=== PATIENT | male | born 1955 | race Caucasian/White ===

== ENCOUNTER 2021-07-20 19:23 | Emergency (ER) | payer MEDICARE, SELFPAY ==
[2021-07-20 19:43] VITALS: BP 113/67; PULSE 72; RESP 16; TEMP 36.9; O2SAT 97; BMI 25.0
--- NOTE | 2021-07-20 19:59 | W.ED.ANIMALB ---
HPI - Animal Bite General: Chief Complaint: Animal Bite Stated Complaint: left arm lac Time Seen by Provider: 07/20/21 19:59 History of Present Illness: HPI narrative: 66-year-old male patient got bit by his dog this afternoon. Patient states that he was trying to break up his 2 animals. And the 1 bit him to the left midforearm leaving a small laceration. Patient denies any other pain. Patient was concerned for his tetanus vaccine. Review of Systems General: Reports: 10 or more systems reviewed and unremarkable except in HPI and below Skin/Breast: Reports: other (laceration left forearm) [facility] PFSH: Social History Smoking and tobacco status: former smoker Physical Exam Const: COMMON NORMALS: no acute distress and patient oriented x3 GENERAL APPEARANCE: cooperative HENMT: COMMON NORMALS: normocephalic and Normal external nose present HEAD & SCALP: normal to inspection and normocephalic NOSE: Normal external nose present Eye: GENERAL EYE: appearance normal, both eyes and all related structures Neck/C-Spine: COMMON NORMALS: full ROM Chest: COMMONS NORMALS: normal inspection of the chest Resp: COMMON NORMALS: normal respiratory effort EFFORT & INSPECTION: Yes able to speak in complete sentences Cardio: COMMON NORMALS: regular rate and regular rhythm RATE: regular rate RHYTHM: regular rhythm GI: COMMON NORMALS: non-tender Back/Pelvis: COMMON NORMALS: thoracic and lumbar spine normal to inspection Extremity: COMMON NORMALS: normal to inspection Neuro: COMMON NORMALS: patient oriented x3 and moves all extremities Psych: COMMON NORMALS: mental status grossly normal and cooperative Skin: NARRATIVE SKIN EXAM: Patient has a 2 cm V-shaped skin tear to the left forearm. There is a puncture wound at the V tip. Patient has normal range of motion of the extremity and normal cap refill. Course Vital Signs: Vital signs: Vital Signs Temperature 98.5 F 07/20/21 19:43 Pulse Rate 72 07/20/21 19:43 Respiratory Rate 16 07/20/21 19:43 Blood Pressure 113/67 07/20/21 19:43 Pulse Oximetry 97 07/20/21 19:43 MDM - Animal Bite MDM Narrative: Medical decision making narrative: Patient comes in for evaluation of injury to the left forearm. On exam patient has a V-shaped laceration/skin tear to the mid dorsal forearm on the left side. Patient has normal range of motion, sensation, and cap refill. Differential diagnosis includes fracture, laceration, tendon injury, need for prophylaxis antibiotic/vaccine. Patient's tetanus shot was updated. Patient be put on some Augmentin due to the nature of the bite. Reviewed exam and recommended no suture for wound closure as this is a superficial laceration and will heal appropriately yet there is a higher risk of infection. Patient was started on Augmentin twice a day for the next 7 days. Patient reported understanding of care plan and need for follow-up or return to the ER. Discharge Plan Discharge Patient Disposition: Home Clinical Impression: Dog bite of forearm Qualifiers: Encounter type: initial encounter Laterality: left Qualified Code(s): S51.852A - Open bite of left forearm, initial encounter Condition: Stable Prescriptions: New Augmentin 875-125 mg tablet 1 tab PO BID Qty: 14 RF: 0 No Action cetirizine-pseudoephedrine [Zyrtec-D] 5-120 mg tablet extended release 12 hr 1 tab PO BID RF: 0 Discharge Orders: Discharge ED (Routine); Ordered 07/20/21 Ordered By: Salty Forrest Referrals: Aura Soto MD [Primary Care Provider] - Discharge Diet: Usual diet Discharge Activity: Increase activity as tolerated Patient Instructions: Opioid Safety, Wound Care (General) Activity Restrictions/Additional Instructions: Keep wound clean and dry. Wash wound daily with some mild soap and water and cover with a nonstick dressing. Take antibiotics twice a day for the next 7 days. Follow-up with primary care in 1 week for recheck earlier for high fever greater than 100.4, increased redness and swelling to the arm. Return to the ER for new concerns. Coding Level of Care Code ED [employer]st for [employer] Exam Comprehensive
[2021-07-20 20:16] VITALS: BP 113/67; PULSE 78; RESP 17; O2SAT 98
[2021-07-20] MEDS: tetanus-dipt-pertussis 0.5 mL SDV IM (20:34)
[2021-07-20] MEDS: amoxicillin-clav 875-125 mg Tablet 1 TAB PO (20:34)
== END 2021-07-20 20:54 | disposition home or self-care (01) ==
PROVIDERS: Emergency Provider Nurse Practitioner Family; PCP Family Medicine
DX: S51.852A Open bite of left forearm, initial encounter (principal); W54.0XXA Bitten by dog, initial encounter; Z87.891 Personal history of nicotine dependence
CPT/HCPCS: 90471; 90715; 99282

== ENCOUNTER 2024-09-11 09:39 | Outpatient (CLI) | payer OTHER, SELFPAY ==
--- NOTE | 2024-09-11 09:49 | MR_ITS ---
WS: [id number] MRI HEAD WITH CONTRAST WITH ATTENTION TO THE INTERNAL AUDITORY CANALS TECHNIQUE: Sagittal T1, T2 axial, T2 axial flair, axial susceptibility weighted imaging, axial diffus ion weighted images, and coronal T2 images were obtained. Pre and post T1 axial and post T1 coronal i mages. ADC and FSPGR images. Post gadolinium images with attention to the internal auditory canals. A xial fiesta imaging. CLINICAL INFORMATION: OTHER SPECIFIED HEARLING LOSS,BILATERAL COMPARISON: None. FINDINGS: No evidence of restricted diffusion to suggest acute ischemia. Ventricular system and basal cisterns are patent. Minimal small vessel changes. Mild parenchymal volume loss. No hemosiderin on the suscept ibility weighted images. RIGHT IAC is normal. Normal trigeminal nerve root entry zones. Enhancing lesion in the LEFT IAC measu ring 4.3 x 3.0 mm compatible with vestibular schwannoma. Normal optic chiasm and pituitary infundibul um. Normal cavernous sinuses. Normal dural venous sinuses. No hemosiderin on the susceptibly weighted images. Mild mucosal thickening in the paranasal sinuses. Mastoid air cells are well aerated. Normal posterior fossa. Normal vascular flow voids at the skull base. No extra-axial fluid collection s. MR/MR iac's wo/w con* [id number] IMPRESSION: 1. Enhancing LEFT IAC nodule compatible with vestibular schwannoma measuring 4 .3 x 3.0 mm. 2. No evidence of restricted diffusion to suggest acute ischemia. 3. Minimal small vessel changes. Mild parenchymal volume loss. 4. No other acute findings.
[2024-09-11] MEDS: gadobenate dimeglumine 5 mL vial IV (11:02)
== END 2024-09-11 09:40 | disposition home or self-care (01) ==
LOC: RAD 09:42
PROVIDERS: Visit Provider Otolaryngology
DX: H91.8X3 Other specified hearing loss, bilateral (principal); R93.89 Abnormal findings on diagnostic imaging of other specified body structures
CPT/HCPCS: 70553

== ENCOUNTER 2025-04-10 09:02 | Emergency (ER) | payer MEDICARE, SELFPAY ==
--- OUTSIDE RECORDS SUMMARY | 2024-08-16 08:45 | XMS_ITS | Encounter Summary ---
Author Name [facility] Organization [facility] [place] Address [address] [place] [id number] Support Name Relationship Address Phone XUAN INMAN Next of Kin [address] [place] [address] [place] [phone] XUAN INMAN Emergency Contact [address] [place] [address] [place] [address] Insurance Providers: All historical and current Section Date Range: From patient's date of to the date document was created. This section includes the names of all active insurance providers for the patient. Insurance Provider Type of Coverage Plan Name Start of Policy Coverage End of Policy Coverage Group Number Member ID Insurance Provider's Telephone Number Policy Barajas's Name Patient's Relationship to Policy Barajas [employer] MCR (WNR) MEDICARE ADVANTAGE MCR (WNR) Sep 12, 2022 [id number] JONATHAN INMAN PATIENT Selected Encounter This section includes the information on record at [place] for the Encounter. Date/Time Encounter Type Encounter Description Reason Provider Source Aug 16, 2024 01:45 PM TELEHEALTH FACILITY FEE PRIMARY CARE/MEDICINE ICD-10-CM I10 Essential (primary) hypertension FERNANDA CASTILLO Sunni Encounter Template Text not used by [place] Assessments - Encounter Diagnoses This section includes the primary and secondary diagnoses documented for the Encounter. Date/Time Primary/Secondary Diagnosis Diagnosis Name Provider Source Aug 17, 2024 02:44 PM PRIMARY Essential (primary) hypertension CLEMENTE VALENZUELA [facility] Plan of Treatment: Future Appointments (+ 6 months) and Future Tests (+/- 45 days) The Plan of Treatment section includes future care activities for the patient from all [facility] treatmentfacilities. This section includes future appointments and future orders which are active, pending or scheduled. Future Appointments This section includes appointments that were scheduled to occur 6 months from the date of the Encounter, up to a maximum of 20 appointments. The data comes from all [place] treatment facilities. Appointment Date/Time Appointment Type Appointme nt Facility Name Sep 11, 2024 08:00 AM [facility] [place] [facility] Oct 22, 2024 09:30 AM AMBULATORY - MEDICINE [facility] Oct 22, 2024 09:31 AM [facility] [place] [facility] Nov 26, 2024 12:00 PM AMBULATORY - MEDICINE [facility] Nov 26, 2024 12:01 [facility] February 06, 2025 12:30 PM AMBULATORY MEDICINE [facility] February 06, 2025 12:31 PM AMBULATORY MEDICINE [facility] Lab Results: +/- 30 days of the encounter This section includes the Chemistry and Hematology Lab Results on record with [place] for the patient. Radiology Reports and Pathology Reports are provided separately, in subsequent sections. Lab Results This section contains the Chemistry/Hematology Results that were resulted 30 days before or 30 daysafter the date of the Encounter. Date/Time Source Result Type Result - Unit Interpretation Reference Range Specimen Type Comment Jul 30, 2024 08:15 AM [facility] COMPREHENSIVE METABOLIC PANEL PLASMA Specimen Type: PLASMA No comment entered. Ordering Provider: KYLAH SHIN Report Released Date/Time: Jul 30, 2024 08:14 AM Reporting Lab: [facility] [address] [facility] [facility] [address] Performing Lab: [facility] [address] [facility] [facility] [address] CREATININE 1.01 mg/dL 0.7-1.3 UREA NITROGEN 14 mg/dL 9-25 GLUCOSE 103 mg/dL H 72-99 SODIUM 139 meq/L 136-145 POTASSIUM 3.8 meq/L 3.5-5 CHLORIDE 107 meq/L 98-107 CARBON DIOXIDE 25 meq/L 22-31 CALCIUM 9.0 mg/dL 8.4-10.4 PROTEIN 6.5 g/dL 6-8.6 ALBUMIN 4.1 g/dL 3.4-5 TOTAL BILIRUBIN 0.7 mg/dL 0.2-1.2 ALKALINE PHOSPHATASE 57 U/L 40-150 AST/SGOT 15 U/L 5-34 ALT/SGPT 15 U/L 8-40 EGFR (CKD-EPI 2020) 82 Jul 30, 2024 08:15 AM [facility] PROST. SPECIFIC AG.(PB-STL) SERUM Specimen Ty pe: SERUM No comment entered. Ordering Provider: KYLAH SHIN Report Released Date/Time: Jul 30, 2024 08:14 AM Reporting Lab: [place] [facility] [address] [place] [address] Performing Lab: [place] [facility] [address] [place] [facility] PROST. SPECIFIC AG.(PB-STL) 3.72 ng/mL 0 -4 Jul 30, 2024 08:15 AM [facility] TSH (MA-PB) SERUM Specimen Typ e: SERUM No comment entered. Ordering Provider: KYLAH SHIN Report Released Date/Time: Jul 30, 2024 08:14 AM Reporting Lab: [place] [facility] [address] [place] [facility] Performing Lab: [place] [facility] [address] [place] [id number] TSH 1.906 u[IU]/mL 0.47-5 Jul 30, 2024 08:15 AM [facility] CBC BLOOD Specimen Type: BLOOD No comment entered. Ordering Provider: KYLAH SHIN Report Released Date/Time: Jul 30, 2024 08:14 AM Reporting Lab: [place] [facility] [address] [place] [facility] Performing Lab: [place] [facility] [address] [place] [facility] WBC 4.4 10*3/uL 3.6-11.2 RBC 5.07 10*6/uL 4.10-5.70 HGB 14.9 g/dL 13.1-16.8 HCT 43.9 38.2-48.4 MCV 86.6 fL 80.0-100.0 MCH 29.4 pg 27.0-34.0 MCHC 33.9 g/dL 33.0-36.0 PLT 199 10*3/uL 150-400 MPV 9.1 fL 7.5-11.2 RDW 13.1 11.8-15.1 LYMPHOCYTES, AUTO % 31.9 MONOCYTES, AUTO % 10.9 NEUTROPHILS, AUTO % 49.3 EOSINOPHILS, AUTO % 5.9 BASOPHILS, AUTO % 1.8 LYMPHOCYTES, ABSOLUTE 1.41 10*3/uL 0.77- 4.50 MONOCYTES, ABSOLUTE 0.48 10*3/uL 0.19-0. 8 NEUTROPHILS, ABSOLUTE 2.18 10*3/uL 2.10- 8.00 EOSINOPHILS, ABSOLUTE 0.26 10*3/uL 0.00- 0.60 BASOPHILS, ABSOLUTE 0.08 10*3/uL 0.00-0. 20 IMMATURE GRANS, AUTO % 0.2 IMMATURE GRANS, AUTO ABS 0.01 10*3/uL 0. 00-0.05 Jul 30, 2024 08:15 AM [facility] HGA1C BLOOD Specimen Type: BLOOD No comment entered. Ordering Provider: KYLAH SHIN Report Released Date/Time: Jul 30, 2024 08:14 AM Reporting Lab: [place] [facility] [address] [place] [address] Performing Lab: [place] [facility] [address] [place] [address] HGA1C 5.5 4.0-6.0 Jul 30, 2024 08:15 AM [facility] CHOLESTEROL PANEL (PB) PLASMA Specimen Type: P LASMA No comment entered. Ordering Provider: KYLAH SHIN Report Released Date/Time: Jul 30, 2024 08:14 AM Reporting Lab: [place] [facility] [address] [place] [address] Performing Lab: [place] [facility] [address] [place] [address] CHOLESTEROL 162 mg/dL 0-200 TRIGLYCERIDE 92 mg/dL 0-150 CALCULATED LDL 96.6 mg/dL HDL(New) 47.0 mg/dL H >40 HDL % OF TOTAL CHOLESTEROL (PB) 29.0 >25 Vital Signs: All taken on the encounter date This section contains inpatient and outpatient Vital Signs collected on the date of the Encounter. Date/Time Temperature Pulse Blood Pressure Respiratory Rate SP02 Pain Height Weight Body Mass Index Source Aug 16, 2024 02:23 PM 68 133/84 98 [facility] Aug 16, 2024 02:21 PM 74 145/92 18 97 2 72.0 189.3 26 [facility] Social History: Smoking Status (Most current) and Tobacco Use (All prior to encounter date) This section includes the most current, and the historical, smoking and tobacco- related health factors from the [place] facility where the Encounter took place. Current Smoking Status This section includes the most current smoking, or tobacco-related health factor, from the [place] facility where the Encounter took place. Date/Time Current Smoking Status Comment Facil ity Aug 16, 2024 01:45 PM VA-TOBACCO USE FORMER CIGARETTES [facility] Tobacco Use History This section includes a history of the smoking, or tobacco-related health factors, that were collected on or before the date of the Encounter. The data comes from the [place] facility where the Encounter took place. Date/Time Smoking Status/Tobacco Use Comment F acility Aug 16, 2024 01:45 PM VA-TOBACCO USE FORMER CIGARETTES [facility] Encounter Notes: All associated encounter notes This section contains the clinical notes associated to the Encounter. Date/Time Encounter Note(s) Provider Source Sep 19, 2024 04:16 PM ADDENDUM: LOCAL TITLE: Addendum STANDARD TITLE: ADDENDUM DATE OF NOTE: SEP 19, 2024@16:16:57 ENTRY DATE: SEP 19, 2024@16:16:58 AUTHOR: CLEMENTE VALENZUELA EXP COSIGNER: URGENCY: STATUS: COMPLETED Toxic Exposure Screening - CP,DI,L,NS,P,PH,S,U: The /caregiver was asked if they believe the experienced any toxic exposure(s), such as Airborne Hazards and Open Burn Pit, [place] War related exposures, Agent Greenup, Radiation, contaminated water at [place] or other such exposures, while serving in the Armed [employer]. 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 Printed information was offered and provided if desired. No questions at this time /caregiver was informed of local points of contact. Contact information for local resources: [facility] Registry Exam Program: [phone] Eligibility: [phone] [id number] Toxic Exposure Screening Follow-Up reminder is needed. Name of person notified: DESIRAE Coker /suki/ CLEMENTE VALENZUELA LPN Signed: 09/19/2024 16:19 Receipt Acknowledged By: 09/20/2024 08:04 /suki/ DESIRAE JOSEPH- FERNANDA MCCRACKEN [facility] --- Original Document --- 08/16/24 PRIMARY CARE NURSING PROGRESS NOTE (TEXT) NURSING PB: New Patient INMAN,JONATHAN OCASIO IS A 69 YEAR OLD MALE BEING SEEN IN CLINIC AUG 16, 2024. REASON FOR VISIT: [place] to [place]. 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 Are you receiving care any where other than the [place]? Yes, List: Dr. Jimy Conde - [place], [place], Cardiology Rupali Alston, [place] and Dr. Russo, ENT. 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 No CURRENT ACTIVE MEDICATIONS FOR REVIEW: Allergies/ADRs (Tool #5) FACILITY ALLERGY/ADR -------- No Remote Allergy/ADR Data available for this patient [facility] No Known Allergies Med. Reconciliation (Tool #1) INCLUDED IN THIS LIST: Alphabetical list of active outpatient prescriptions dispensed from this [place] (local) and dispensed from another [place] or [facility] facility (remote) as well as inpatient orders (local pending and active), local clinic medications, locally documented non-VA medications, and local prescriptions that have or been discontinued in the past 90 days. Non-VA Meds Last Documented On: Data not found NOTE The display of VA prescriptions dispensed from another [place] or [facility] facility (remote) is limited to active outpatient prescription entries matched to National Drug File at the originating site and may not include some items such as investigational drugs, compounds, etc. NOT INCLUDED IN THIS LIST: Medications self-entered by the patient into personal health records (i.e. [employer]) are NOT included in this list. Non-VA medications documented outside this [place], remote inpatient orders (regardless of status) and remote clinic medications are NOT included in this list. The patient and provider must always discuss medications the patient is taking, regardless of where the medication was dispensed or obtained. SUPPLIES PHARMACY TERMS AND POSSIBLE PATIENT ACTIONS INPT = [place] inpatient order IV = [place] intravenous medication OUTPT = [place] outpatient prescription PHARMACY POSSIBLE PATIENT TERMS EXPLANATION ACTIONS -------- --- ACTIVE A prescription that can be If you have refills, filled at the local [place] pharmacy. you may request a refill of this prescription from your VA pharmacy. CLINIC A medication you received during If you have questions a visit to a VA clinic or about this medication emergency department. contact your VA healthcare team. DISCONTINUED A prescription your provider has Contact your VA stopped. It is no longer healthcare team if you available to be sent to you or need more of this picked up at the [place] pharmacy medication. window. A prescription which is too old Contact your VA to fill. This does not refer to healthcare team if you the expiration date of the need more of this medication in the container. medication. NON-VA A medication that came from If this medication someplace other than a VA information is pharmacy. This may be a incorrect or out of prescription from either the VA date, please tell your or non VA providers that was VA healthcare team. filled outside the VA. Or, it may be an lhkm-mfi-nquvvio (OTC), herbal, dietary supplements or sample medication. ON HOLD An active prescription that will Contact your VA not be filled until pharmacy pharmacy when you need resolves the issue. more of this medication. PARKED An active prescription that will Contact your VA not be filled until the patient pharmacy when you need requests it. this medication. PENDING This prescription order has been If you have been sent to the pharmacy for review instructed to start and is not ready yet. this medication now, contact your VA pharmacy. SUSPENDED An active prescription that is Contact your VA not scheduled to be filled yet. pharmacy if you need You should receive it before this medication now. you run out. ======== Patient reports taking medications as Ezetimibe 10mg daily, Azelastine HCL 0.1% 137mcg one spray in each nare, Nitroglycerin PRN IS PATIENT TAKING ANY OVER THE COUNTER MEDICATIONS, SUCH VITAMINS OR HERBAL SUPPLEMENTS, INCLUDING ANY MEDICATIONS PRESCRIBED BY ANOTHER PHYSICIAN? Yes, List: Allergy Meds ALLERGIES/ADVERSE REACTIONS: Patient has answered NKA Does patient have any new allergies to report since last visit? NO VITALS: TEMPERATURE: BP: RESP: PULSE: HT: WT: BMI: BMI not available without height PAIN ASSESSMENT: (Most Recent Pain Score in Vitals Package: ) The patient indicated that they and their close contacts have not traveled outside of the [place] in the past 21 days. The patient reports the following symptoms: No symptoms present The patient is not immunocompromised. The patient does not report having a history of Multi Drug Resistant Organism (MDRO) within the last five years. The patient does not report having been exposed to measles, chickenpox, or zoster in last 30 days. Patient reports no pain at this visit. Pain Score = 0. STRESS: Thank you for your service. Now let us serve you. At the [facility], we strive to provide you with exceptional health care that improves your health and well-being. Are you feeling sad, empty, or depressed? No Do you need to talk about things in your life that worry you or cause you stress? No Do you need to talk about personal problems, family problems, alcohol use, drug use, or mental or emotional illness? No SUICIDE SCREENING: The patient was asked, Over the past two weeks, how often have you been bothered by thoughts that you would be better off or of hurting yourself in some way? Not At All SPIRITUAL ASSESSMENT: Are there latter-day practices or spiritual concerns you want the corporation secretary, your physician, and other health care team members to immediately know about? No Patient advised to call the clinic for any concerns, questions, or symptoms. Patient and/or caregiver verbalized understanding of plan of care. Cigarette Pack Year History: The patient previously used cigarettes and quit smoking greater than or equal to 15 years ago. MST Screening - V: Patient denies experiencing sexual trauma (MST). Suicide Screen - V: C-SSRS Screening [place]-Suicide Severity Rating Scale (C-SSRS Screener) 1. Over the past month, have you wished you were or wished you could go to sleep and not wake up? No 2. Over the past month, have you had any actual thoughts of killing yourself? No 3. Over the past month, have you been thinking about how you might do this? Response not required due to responses to other questions. 4. Over the past month, have you had these thoughts and had some intention of acting on them? Response not required due to responses to other questions. 5. Over the past month, have you started to work out or worked out the details of how to kill yourself? Response not required due to responses to other questions. 6. If yes, at any time in the past month did you intend to carry out this plan? Response not required due to responses to other questions. 7. In your lifetime, have you ever done anything, started to do anything, or prepared to do anything to end your life (for example, collected pills, obtained a gun, gave away valuables, went to the roof but didn't jump)? No 8. If YES, was this within the past 3 months? Response not required due to responses to other questions. 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 /caregiver believes the was exposed to the following while serving in the Armed Forces: Airborne Hazards and Open Burn Pit: Steward/caregiver was made aware of educational resources that includes information on the Registry Program, presumptive conditions and how to file a claim. Printed information was offered and provided if desired. Radiation: Steward/caregiver was made aware of educational resources that includes information on the Registry Program, presumptive conditions and how to file a claim. Printed information was offered and provided if desired. Other exposures: Comment: Nuclear waste treament and Uranium, Radio activity lots. Steward/caregiver was made aware of educational resources and printed information was offered and provided if desired. Registry Questions Steward/caregiver was informed of local point of contact. Contact information for local resources: [facility] Registry Exam Program: [phone] Eligibility: [phone] [id number] Toxic Exposure Screening Follow-Up reminder is needed. Name of person notified: DESIRAE Stauffer RHS Screen - VS: RHS Screen Session Format: Face to Face Environmental Check Upon inquiry, the individual reports that the environment is safe to proceed. Informed Consent to Screen and Document The individual consents to proceed with screening. The individual consents to documentation of responses. PRIMARY SCREEN: In the past 12 months, how often did a current or former intimate partner (e.g., boyfriend, girlfriend, , , sexual partner): 1. Scream or curse at you Never 2. Insult or talk down to you Never 3. Threaten you with harm Never 4. Physically hurt you Never 5. Force or pressure you to have sexual contact against your will, or when you were unable to say no Never The HITS tool (items 1-4 above) is US copyright protected by Mode Velasquez MD, and the user has full rights to use it throughout the [place] system. PRIMARY SCREEN RESULT: The Primary Screen is NEGATIVE. The individual answered never to all forms of IPV above (i.e., answered never to all 5 items) The individual accepts education and/or resources: No EDUCATION: Other: na Comments: na COVID-19 Immunization - L,N,P,PH,U: Refused Moderna Monovalent COVID-19 vaccine Immunization: COVID-19 (MODERNA), MRNA, LNP-S, PF, 50 MCG/0.5 ML (AGES 12+ YEARS) Refusal Reason: PATIENT DECISION Patient refuses all immunization(s) in the COVID-19 group Date Documented: 08/16/24 14:11 Alcohol Use Screen (AUDIT-C) - V: Alcohol Screen: SCREEN FOR ALCOHOL (AUDIT-C) An alcohol screening test (AUDIT-C) was negative (score=0). 1. How often did you have a drink containing alcohol in the past year? Consider a drink to be a 12 ounce can or bottle of regular beer, 8 ounces of malt liquor, a 5 ounce glass of table wine, or a 1.5 ounce shot of liquor (like scotch, gin, or vodka). Never 2. How many drinks containing alcohol did you have on a typical day when you were drinking in the past year? Response not required due to responses to other questions. 3. How often did you have six or more drinks on one occasion in the past year? Response not required due to responses to other questions. Tobacco Use Screening - U,L,N,S,PS,M,DE,PH,P: The patient is a former cigarette smoker. The patient has never used other types of tobacco. Depression Screening - V: Perform PHQ-2 A PHQ-2 screen was performed. The score was 0 which is a negative screen for depression. Over the past two weeks, how often have you been bothered by the following problems? 1. Little interest or pleasure in doing things Not at all 2. Feeling down, depressed, or hopeless Not at all Homelessness/Food Insecurity Screen - DI,L,N,P,PH,PS,S,U: In the past 2 months, have you been living in stable housing that you own, rent, or stay in as part of a household? Yes - Living in stable housing. Are you worried or concerned that in the next 2 months you may NOT have stable housing that you own, rent, or stay in as part of a household? No - Not worried about housing near future The reports the following: Within the past 12 months, you worried whether your food would run out before you got money to buy more. Never true Within the past 12 months, the food you bought just didn't last and you didn't have money to get more. Never true Advanced Directive Screen/Fisheries Management Biologist: ADVANCE DIRECTIVE SCREENING: I asked if the patient has an advance directive, and determined that: Patient has an Advance Directive. Patient does not wish to make any changes to the Advance Directive at this time. ADVANCE DIRECTIVE NOTIFICATION I provided the patient with written notification about advance directives. Level of understanding: Influenza Immunization - L,N,P,PH,U: Deferral / Refusal The patient declines to receive the recommended dose of seasonal influenza vaccine. Immunization: INFLUENZA, UNSPECIFIED FORMULATION Refusal Reason: PATIENT DECISION Patient refuses all immunization(s) in the FLU group Date Documented: 08/16/24 14:14 PTSD Screening - V: PC-PTSD-5 A PTSD screening test (PC-PTSD-5) was negative (score=0). IN THE PAST MONTH, have you ever had any experience that was so frightening, horrible or traumatic. For example: A serious accident or fire a physical or sexual assault or abuse An earthquake or flood A war Seeing someone be killed or seriously injured Having a loved one through homicide or suicide 1. Have you ever experienced this kind of event? YES 2. Had nightmares about the event(s) or thought about the event(s) when you did not want to? NO 3. Tried hard not to think about the event(s) or went out of your way to avoid situations that reminded you of the event(s)? NO 4. Been constantly on guard, watchful, or easily startled? NO 5. Smiley numb or detached from people, activities, or your surroundings? NO 6. Smiley guilty or unable to stop blaming yourself or others for the event(s) or any problems the event(s) may have caused? NO VVC DIGITAL DIVIDE CAPABILITY REMINDER: Patient is not interested in VVC at this time. 'S RIGHT TO DECLINE STATEMENT Steward understands they have the right to decline the use of Telehealth Technology at any time without adverse affects on their continued access to healthcare. HIV Screening-Routine: Patient has been offered HIV testing and has declined. I have explained that HIV testing is recommended for all adults, even if all risk factors are absent. 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 While here the Steward advised during his appointment he forgot to mention that he was at [facility] for [employer] training for several months, he believes in 1977. /es/ SEVERO COOK 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 While here the Steward advised during his appointment he forgot to mention that he was at [facility] [employer] [facility] for [employer] training for several months, he believes in 1977. /es/ SEVERO COOK [facility] Signed: 09/19/2024 13:38 Receipt Acknowledged By: 09/20/2024 08:09 /es/ FERNANDA CASTILLO SCIENTIST ENGINEER- [facility] 09/19/2024 16:16 /es/ CLEMENTE VALENZUELA LPN --- Original Document --- 08/16/24 PRIMARY CARE NURSING PROGRESS NOTE (TEXT) NURSING PB: New Patient INMAN,JONATHAN OCASIO IS A 69 YEAR OLD MALE BEING SEEN IN CLINIC AUG 16, 2024. REASON FOR VISIT: [place] 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 Are you receiving care any where other than the [facility]? Yes, List: Dr. Jimy Conde - [place], [place], Cardiology Rupali Alston, [place] and Dr. Russo, ENT. 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 No CURRENT ACTIVE MEDICATIONS FOR REVIEW: Allergies/ADRs (Tool #5) FACILITY ALLERGY/ADR -------- No Remote Allergy/ADR Data available for this patient [facility] No Known Allergies Med. Reconciliation (Tool #1) INCLUDED IN THIS LIST: Alphabetical list of active outpatient prescriptions dispensed from this [place] (local) and dispensed from another [place] or [facility] facility (remote) as well as inpatient orders (local pending and active), local clinic medications, locally documented non-VA medications, and local prescriptions that have or been discontinued in the past 90 days. Non-VA Meds Last Documented On: Data not found NOTE The display of VA prescriptions dispensed from another [place] or [facility] facility (remote) is limited to active outpatient prescription entries matched to National Drug File at the originating site and may not include some items such as investigational drugs, compounds, etc. NOT INCLUDED IN THIS LIST: Medications self-entered by the patient into personal health records (i.e. Biocontrol) are NOT included in this list. Non-VA medications documented outside this [place], remote inpatient orders (regardless of status) and remote clinic medications are NOT included in this list. The patient and provider must always discuss medications the patient is taking, regardless of where the medication was dispensed or obtained. SUPPLIES PHARMACY TERMS AND POSSIBLE PATIENT ACTIONS INPT = [place] inpatient order IV = [place] intravenous medication OUTPT = [place] outpatient prescription PHARMACY POSSIBLE PATIENT TERMS EXPLANATION ACTIONS -------- --- ACTIVE A prescription that can be If you have refills, filled at the local [place] pharmacy. you may request a refill of this prescription from your [place] pharmacy. CLINIC A medication you received during If you have questions a visit to a [place] clinic or about this medication emergency department. contact your [place] healthcare team. DISCONTINUED A prescription your provider has Contact your [place] stopped. It is no longer healthcare team if you available to be sent to you or need more of this picked up at the [place] pharmacy medication. window. A prescription which is too old Contact your VA to fill. This does not refer to healthcare team if you the expiration date of the need more of this medication in the container. medication. NON-VA A medication that came from If this medication someplace other than a VA information is pharmacy. This may be a incorrect or out of prescription from either the VA date, please tell your or non VA providers that was VA healthcare team. filled outside the VA. Or, it may be an tvuh-nwy-krqhtzh (OTC), herbal, dietary supplements or sample medication. ON HOLD An active prescription that will Contact your VA not be filled until pharmacy pharmacy when you need resolves the issue. more of this medication. PARKED An active prescription that will Contact your [place] not be filled until the patient pharmacy when you need requests it. this medication. PENDING This prescription order has been If you have been sent to the pharmacy for review instructed to start and is not ready yet. this medication now, contact your VA pharmacy. SUSPENDED An active prescription that is Contact your [place] not scheduled to be filled yet. pharmacy if you need You should receive it before this medication now. you run out. ======== Patient reports taking medications as Ezetimibe 10mg daily, Azelastine HCL 0.1% 137mcg one spray in each nare, Nitroglycerin PRN IS PATIENT TAKING ANY OVER THE COUNTER MEDICATIONS, SUCH VITAMINS OR HERBAL SUPPLEMENTS, INCLUDING ANY MEDICATIONS PRESCRIBED BY ANOTHER PHYSICIAN? Yes, List: Allergy Meds ALLERGIES/ADVERSE REACTIONS: Patient has answered NKA Does patient have any new allergies to report since last visit? NO VITALS: TEMPERATURE: BP: RESP: PULSE: HT: WT: BMI: BMI not available without height PAIN ASSESSMENT: (Most Recent Pain Score in Vitals Package: ) The patient indicated that they and their close contacts have not traveled outside of the [place] in the past 21 days. The patient reports the following symptoms: No symptoms present The patient is not immunocompromised. The patient does not report having a history of Multi Drug Resistant Organism (MDRO) within the last five years. The patient does not report having been exposed to measles, chickenpox, or zoster in last 30 days. Patient reports no pain at this visit. Pain Score = 0. STRESS: Thank you for your service. Now let us serve you. At the [facility], we strive to provide you with exceptional health care that improves your health and well-being. Are you feeling sad, empty, or depressed? No Do you need to talk about things in your life that worry you or cause you stress? No Do you need to talk about personal problems, family problems, alcohol use, drug use, or mental or emotional illness? No SUICIDE SCREENING: The patient was asked, Over the past two weeks, how often have you been bothered by thoughts that you would be better off or of hurting yourself in some way? Not At All SPIRITUAL ASSESSMENT: Are there latter-day practices or spiritual concerns you want the corporation secretary, your physician, and other health care team members to immediately know about? No Patient advised to call the clinic for any concerns, questions, or symptoms. Patient and/or caregiver verbalized understanding of plan of care. Cigarette Pack Year History: The patient previously used cigarettes and quit smoking greater than or equal to 15 years ago. MST Screening - V: Patient denies experiencing sexual trauma (MST). Suicide Screen - V: C-SSRS Screening [place]-Suicide Severity Rating Scale (C-SSRS Screener) 1. Over the past month, have you wished you were or wished you could go to sleep and not wake up? No 2. Over the past month, have you had any actual thoughts of killing yourself? No 3. Over the past month, have you been thinking about how you might do this? Response not required due to responses to other questions. 4. Over the past month, have you had these thoughts and had some intention of acting on them? Response not required due to responses to other questions. 5. Over the past month, have you started to work out or worked out the details of how to kill yourself? Response not required due to responses to other questions. 6. If yes, at any time in the past month did you intend to carry out this plan? Response not required due to responses to other questions. 7. In your lifetime, have you ever done anything, started to do anything, or prepared to do anything to end your life (for example, collected pills, obtained a gun, gave away valuables, went to the roof but didn't jump)? No 8. If YES, was this within the past 3 months? Response not required due to responses to other questions. Sexual Orientation - CP,L,N,P,PH,PS,S,U: The patient thinks of their sexual orientation as: Straight or Heterosexual Toxic Exposure Screening - CP,DI,L,NS,P,PH,S,U: The Steward/caregiver was asked if they believe the Steward experienced any toxic exposure(s), such as Airborne Hazards and Open Burn Pit, [place] War related exposures, Agent Greenup, Radiation, contaminated water at [facility] or other such exposures, while serving in the Armed Forces. Steward/caregiver believes the Steward was exposed to the following while serving in the Armed Forces: Airborne Hazards and Open Burn Pit: Steward/caregiver was made aware of educational resources that includes information on the Registry Program, presumptive conditions and how to file a claim. Printed information was offered and provided if desired. Radiation: Steward/caregiver was made aware of educational resources that includes information on the Registry Program, presumptive conditions and how to file a claim. Printed information was offered and provided if desired. Other exposures: Comment: Nuclear waste treament and Uranium, Radio activity lots. Steward/caregiver was made aware of educational resources and printed information was offered and provided if desired. Registry Questions Steward/caregiver was informed of local point of contact. Contact information for local resources: [facility] Registry Exam Program: [phone] Eligibility: [phone] NEAL [id number] Toxic Exposure Screening Follow-Up reminder is needed. Name of person notified: DESIRAE Stauffer RHS Screen - VS: RHS Screen Session Format: Face to Face Environmental Check Upon inquiry, the individual reports that the environment is safe to proceed. Informed Consent to Screen and Document The individual consents to proceed with screening. The individual consents to documentation of responses. PRIMARY SCREEN: In the past 12 months, how often did a current or former intimate partner (e.g., boyfriend, girlfriend, , , sexual partner): 1. Scream or curse at you Never 2. Insult or talk down to you Never 3. Threaten you with harm Never 4. Physically hurt you Never 5. Force or pressure you to have sexual contact against your will, or when you were unable to say no Never The HITS tool (items 1-4 above) is US copyright protected by Mode Velasquez MD, and the user has full rights to use it throughout the [place] system. PRIMARY SCREEN RESULT: The Primary Screen is NEGATIVE. The individual answered never to all forms of IPV above (i.e., answered never to all 5 items) The individual accepts education and/or resources: No EDUCATION: Other: na Comments: na COVID-19 Immunization - L,N,P,PH,U: Refused Moderna Monovalent COVID-19 vaccine Immunization: COVID-19 (MODERNA), MRNA, LNP-S, PF, 50 MCG/0.5 ML (AGES 12+ YEARS) Refusal Reason: PATIENT DECISION Patient refuses all immunization(s) in the COVID-19 group Date Documented: 08/16/24 14:11 Alcohol Use Screen (AUDIT-C) - V: Alcohol Screen: SCREEN FOR ALCOHOL (AUDIT-C) An alcohol screening test (AUDIT-C) was negative (score=0). 1. How often did you have a drink containing alcohol in the past year? Consider a drink to be a 12 ounce can or bottle of regular beer, 8 ounces of malt liquor, a 5 ounce glass of table wine, or a 1.5 ounce shot of liquor (like scotch, gin, or vodka). Never 2. How many drinks containing alcohol did you have on a typical day when you were drinking in the past year? Response not required due to responses to other questions. 3. How often did you have six or more drinks on one occasion in the past year? Response not required due to responses to other questions. Tobacco Use Screening - U,L,N,S,PS,M,DE,PH,P: The patient is a former cigarette smoker. The patient has never used other types of tobacco. Depression Screening - V: Perform PHQ-2 A PHQ-2 screen was performed. The score was 0 which is a negative screen for depression. Over the past two weeks, how often have you been bothered by the following problems? 1. Little interest or pleasure in doing things Not at all 2. Feeling down, depressed, or hopeless Not at all Homelessness/Food Insecurity Screen - DI,L,N,P,PH,PS,S,U: In the past 2 months, have you been living in stable housing that you own, rent, or stay in as part of a household? Yes - Living in stable housing. Are you worried or concerned that in the next 2 months you may NOT have stable housing that you own, rent, or stay in as part of a household? No - Not worried about housing near future The Steward reports the following: Within the past 12 months, you worried whether your food would run out before you got money to buy more. Never true Within the past 12 months, the food you bought just didn't last and you didn't have money to get more. Never true Advanced Directive Screen/Fisheries Management Biologist: ADVANCE DIRECTIVE SCREENING: I asked if the patient has an advance directive, and determined that: Patient has an Advance Directive. Patient does not wish to make any changes to the Advance Directive at this time. ADVANCE DIRECTIVE NOTIFICATION I provided the patient with written notification about advance directives. Level of understanding: Influenza Immunization - L,N,P,PH,U: Deferral / Refusal The patient declines to receive the recommended dose of seasonal influenza vaccine. Immunization: INFLUENZA, UNSPECIFIED FORMULATION Refusal Reason: PATIENT DECISION Patient refuses all immunization(s) in the FLU group Date Documented: 08/16/24 14:14 PTSD Screening - V: PC-PTSD-5 A PTSD screening test (PC-PTSD-5) was negative (score=0). IN THE PAST MONTH, have you ever had any experience that was so frightening, horrible or traumatic. For example: A serious accident or fire a physical or sexual assault or abuse An earthquake or flood A war Seeing someone be killed or seriously injured Having a loved one through homicide or suicide 1. Have you ever experienced this kind of event? YES 2. Had nightmares about the event(s) or thought about the event(s) when you did not want to? NO 3. Tried hard not to think about the event(s) or went out of your way to avoid situations that reminded you of the event(s)? NO 4. Been constantly on guard, watchful, or easily startled? NO 5. Smiley numb or detached from people, activities, or your surroundings? NO 6. Smiley guilty or unable to stop blaming yourself or others for the event(s) or any problems the event(s) may have caused? NO VVC DIGITAL DIVIDE CAPABILITY REMINDER: Patient is not interested in VVC at this time. 'S RIGHT TO DECLINE STATEMENT understands they have the right to decline the use of Telehealth Technology at any time without adverse affects on their continued access to healthcare. HIV Screening-Routine: Patient has been offered HIV testing and has declined. I have explained that HIV testing is recommended for all adults, even if all risk factors are absent. /suki/ CLEMENTE VALENZUELA LPN Signed: 08/16/2024 14:15 09/19/2024 ADDENDUM STATUS: COMPLETED Toxic Exposure Screening - CP,DI,L,NS,P,PH,S,U: The Steward/caregiver was asked if they believe the Steward experienced any toxic exposure(s), such as Airborne Hazards and Open Burn Pit, [place] War related exposures, Agent Greenup, Radiation, contaminated water at [employer] or other such exposures, while serving in the [employer]. /caregiver believes the was exposed to the following while serving in the [employer]: [employer] contaminated water exposure: /caregiver was made aware of educational resources that includes information on presumptive conditions and how to file a claim. Printed information was offered and provided if desired. No questions at this time Steward/caregiver was informed of local points of contact. Contact information for local resources: [facility] Registry Exam Program: [phone] Eligibility: [phone] [id number] Toxic Exposure Screening Follow-Up reminder is needed. Name of person notified: DESIRAE Coker /suki/ CLEMENTE VALENZUELA LPN Signed: 09/19/2024 16:19 Receipt Acknowledged By: 09/20/2024 08:04 /suki/ ARVIN JOSEPH FERNANDA [facility] SEVERO COOK [facility] Aug 16, 2024 02:00 PM PRIMARY CARE NURSI NG NOTE: LOCAL TITLE: PRIMARY CARE NURSING PROGRESS NOTE (TEXT) NURSING P STANDARD TITLE: PRIMARY CARE NURSING NOTE DATE OF NOTE: AUG 16, 2024@14:00 ENTRY DATE: AUG 16, 2024@14:00:37 AUTHOR: LCEMENTE VALENZUELA EXP COSIGNER: URGENCY: STATUS: COMPLETED PRIMARY CARE NURSING PROGRESS NOTE (TEXT) NURSING PB Has ADDENDA New Patient INMAN,JONATHAN OCASIO IS A 69 YEAR OLD MALE BEING SEEN IN CLINIC AUG 16, 2024. REASON FOR VISIT: [place] 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 Are you receiving care any where other than the VA? Yes, List: Dr. Jimy Conde - [facility]. [place], [place], Cardiology Rupali Alston, [place] and Dr. Russo, ENT. 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 No CURRENT ACTIVE MEDICATIONS FOR REVIEW: Allergies/ADRs (Tool #5) FACILITY ALLERGY/ADR -------- No Remote Allergy/ADR Data available for this patient [facility] No Known Allergies Med. Reconciliation (Tool #1) INCLUDED IN THIS LIST: Alphabetical list of active outpatient prescriptions dispensed from this VA (local) and dispensed from another VA or [facility] facility (remote) as well as inpatient orders (local pending and active), local clinic medications, locally documented non-VA medications, and local prescriptions that have or been discontinued in the past 90 days. Non-VA Meds Last Documented On: Data not found NOTE The display of VA prescriptions dispensed from another [place] or [facility] facility (remote) is limited to active outpatient prescription entries matched to National Drug File at the originating site and may not include some items such as investigational drugs, compounds, etc. NOT INCLUDED IN THIS LIST: Medications self-entered by the patient into personal health records (i.e. Biocontrol) are NOT included in this list. Non-VA medications documented outside this VA, remote inpatient orders (regardless of status) and remote clinic medications are NOT included in this list. The patient and provider must always discuss medications the patient is taking, regardless of where the medication was dispensed or obtained. SUPPLIES PHARMACY TERMS AND POSSIBLE PATIENT ACTIONS INPT = [place] inpatient order IV = [place] intravenous medication OUTPT = [place] outpatient prescription PHARMACY POSSIBLE PATIENT TERMS EXPLANATION ACTIONS -------- --- ACTIVE A prescription that can be If you have refills, filled at the local [place] pharmacy. you may request a refill of this prescription from your [place] pharmacy. CLINIC A medication you received during If you have questions a visit to a [place] clinic or about this medication emergency department. contact your [place] healthcare team. DISCONTINUED A prescription your provider has Contact your [place] stopped. It is no longer healthcare team if you available to be sent to you or need more of this picked up at the [place] pharmacy medication. window. A prescription which is too old Contact your [place] to fill. This does not refer to healthcare team if you the expiration date of the need more of this medication in the container. medication. NON-VA A medication that came from If this medication someplace other than a VA information is pharmacy. This may be a incorrect or out of prescription from either the VA date, please tell your or non VA providers that was VA healthcare team. filled outside the VA. Or, it may be an eooc-yhw-cjcjndv (OTC), herbal, dietary supplements or sample medication. ON HOLD An active prescription that will Contact your VA not be filled until pharmacy pharmacy when you need resolves the issue. more of this medication. PARKED An active prescription that will Contact your VA not be filled until the patient pharmacy when you need requests it. this medication. PENDING This prescription order has been If you have been sent to the pharmacy for review instructed to start and is not ready yet. this medication now, contact your VA pharmacy. SUSPENDED An active prescription that is Contact your [place] not scheduled to be filled yet. pharmacy if you need You should receive it before this medication now. you run out. ======== Patient reports taking medications as Ezetimibe 10mg daily, Azelastine HCL 0.1% 137mcg one spray in each nare, Nitroglycerin PRN IS PATIENT TAKING ANY OVER THE COUNTER MEDICATIONS, SUCH VITAMINS OR HERBAL SUPPLEMENTS, INCLUDING ANY MEDICATIONS PRESCRIBED BY ANOTHER PHYSICIAN? Yes, List: Allergy Meds ALLERGIES/ADVERSE REACTIONS: Patient has answered NKA Does patient have any new allergies to report since last visit? NO VITALS: TEMPERATURE: BP: RESP: PULSE: HT: WT: BMI: BMI not available without height PAIN ASSESSMENT: (Most Recent Pain Score in Vitals Package: ) The patient indicated that they and their close contacts have not traveled outside of the [place] in the past 21 days. The patient reports the following symptoms: No symptoms present The patient is not immunocompromised. The patient does not report having a history of Multi Drug Resistant Organism (MDRO) within the last five years. The patient does not report having been exposed to measles, chickenpox, or zoster in last 30 days. Patient reports no pain at this visit. Pain Score = 0. STRESS: Thank you for your service. Now let us serve you. At the [facility], we strive to provide you with exceptional health care that improves your health and well-being. Are you feeling sad, empty, or depressed? No Do you need to talk about things in your life that worry you or cause you stress? No Do you need to talk about personal problems, family problems, alcohol use, drug use, or mental or emotional illness? No SUICIDE SCREENING: The patient was asked, Over the past two weeks, how often have you been bothered by thoughts that you would be better off or of hurting yourself in some way? Not At All SPIRITUAL ASSESSMENT: Are there latter-day practices or spiritual concerns you want the corporation secretary, your physician, and other health care team members to immediately know about? No Patient advised to call the clinic for any concerns, questions, or symptoms. Patient and/or caregiver verbalized understanding of plan of care. Cigarette Pack Year History: The patient previously used cigarettes and quit smoking greater than or equal to 15 years ago. MST Screening - V: Patient denies experiencing sexual trauma (MST). Suicide Screen - V: C-SSRS Screening [place]-Suicide Severity Rating Scale (C-SSRS Screener) 1. Over the past month, have you wished you were or wished you could go to sleep and not wake up? No 2. Over the past month, have you had any actual thoughts of killing yourself? No 3. Over the past month, have you been thinking about how you might do this? Response not required due to responses to other questions. 4. Over the past month, have you had these thoughts and had some intention of acting on them? Response not required due to responses to other questions. 5. Over the past month, have you started to work out or worked out the details of how to kill yourself? Response not required due to responses to other questions. 6. If yes, at any time in the past month did you intend to carry out this plan? Response not required due to responses to other questions. 7. In your lifetime, have you ever done anything, started to do anything, or prepared to do anything to end your life (for example, collected pills, obtained a gun, gave away valuables, went to the roof but didn't jump)? No 8. If YES, was this within the past 3 months? Response not required due to responses to other questions. Sexual Orientation - CP,L,N,P,PH,PS,S,U: The patient thinks of their sexual orientation as: Straight or Heterosexual Toxic Exposure Screening - CP,DI,L,NS,P,PH,S,U: The /caregiver was asked if they believe the experienced any toxic exposure(s), such as Airborne Hazards and Open Burn Pit, [place] related exposures, Agent Greenup, Radiation, contaminated water at [place] or other such exposures, while serving in the [employer]. /caregiver believes the Steward was exposed to the following while serving in the Armed Forces: Airborne Hazards and Open Burn Pit: Steward/caregiver was made aware of educational resources that includes information on the Registry Program, presumptive conditions and how to file a claim. Printed information was offered and provided if desired. Radiation: Steward/caregiver was made aware of educational resources that includes information on the Registry Program, presumptive conditions and how to file a claim. Printed information was offered and provided if desired. Other exposures: Comment: Nuclear waste treament and Uranium, Radio activity lots. Steward/caregiver was made aware of educational resources and printed information was offered and provided if desired. Registry Questions Steward/caregiver was informed of local point of contact. Contact information for local resources: [facility] Registry Exam Program: [phone] Eligibility: [phone] NEAL [id number] Toxic Exposure Screening Follow-Up reminder is needed. Name of person notified: DESIRAE Stauffer RHS Screen - VS: RHS Screen Session Format: Face to Face Environmental Check Upon inquiry, the individual reports that the environment is safe to proceed. Informed Consent to Screen and Document The individual consents to proceed with screening. The individual consents to documentation of responses. PRIMARY SCREEN: In the past 12 months, how often did a current or former intimate partner (e.g., boyfriend, girlfriend, , , sexual partner): 1. Scream or curse at you Never 2. Insult or talk down to you Never 3. Threaten you with harm Never 4. Physically hurt you Never 5. Force or pressure you to have sexual contact against your will, or when you were unable to say no Never The HITS tool (items 1-4 above) is [place] copyright protected by Mode Velasquez MD, and the user has full rights to use it throughout the [place] system. PRIMARY SCREEN RESULT: The Primary Screen is NEGATIVE. The individual answered never to all forms of IPV above (i.e., answered never to all 5 items) The individual accepts education and/or resources: No EDUCATION: Other: na Comments: na COVID-19 Immunization - L,N,P,PH,U: Refused Moderna Monovalent COVID-19 vaccine Immunization: COVID-19 (MODERNA), MRNA, LNP-S, PF, 50 MCG/0.5 ML (AGES 12+ YEARS) Refusal Reason: PATIENT DECISION Patient refuses all immunization(s) in the COVID-19 group Date Documented: 08/16/24 14:11 Alcohol Use Screen (AUDIT-C) - V: Alcohol Screen: SCREEN FOR ALCOHOL (AUDIT-C) An alcohol screening test (AUDIT-C) was negative (score=0). 1. How often did you have a drink containing alcohol in the past year? Consider a drink to be a 12 ounce can or bottle of regular beer, 8 ounces of malt liquor, a 5 ounce glass of table wine, or a 1.5 ounce shot of liquor (like scotch, gin, or vodka). Never 2. How many drinks containing alcohol did you have on a typical day when you were drinking in the past year? Response not required due to responses to other questions. 3. How often did you have six or more drinks on one occasion in the past year? Response not required due to responses to other questions. Tobacco Use Screening - U,L,N,S,PS,M,DE,PH,P: The patient is a former cigarette smoker. The patient has never used other types of tobacco. Depression Screening - V: Perform PHQ-2 A PHQ-2 screen was performed. The score was 0 which is a negative screen for depression. Over the past two weeks, how often have you been bothered by the following problems? 1. Little interest or pleasure in doing things Not at all 2. Feeling down, depressed, or hopeless Not at all Homelessness/Food Insecurity Screen - DI,L,N,P,PH,PS,S,U: In the past 2 months, have you been living in stable housing that you own, rent, or stay in as part of a household? Yes - Living in stable housing. Are you worried or concerned that in the next 2 months you may NOT have stable housing that you own, rent, or stay in as part of a household? No - Not worried about housing near future The reports the following: Within the past 12 months, you worried whether your food would run out before you got money to buy more. Never true Within the past 12 months, the food you bought just didn't last and you didn't have money to get more. Never true Advanced Directive Screen/Fisheries Management Biologist: ADVANCE DIRECTIVE SCREENING: I asked if the patient has an advance directive, and determined that: Patient has an Advance Directive. Patient does not wish to make any changes to the Advance Directive at this time. ADVANCE DIRECTIVE NOTIFICATION I provided the patient with written notification about advance directives. Level of understanding: Influenza Immunization - L,N,P,PH,U: Deferral / Refusal The patient declines to receive the recommended dose of seasonal influenza vaccine. Immunization: INFLUENZA, UNSPECIFIED FORMULATION Refusal Reason: PATIENT DECISION Patient refuses all immunization(s) in the FLU group Date Documented: 08/16/24 14:14 PTSD Screening - V: PC-PTSD-5 A PTSD screening test (PC-PTSD-5) was negative (score=0). IN THE PAST MONTH, have you ever had any experience that was so frightening, horrible or traumatic. For example: A serious accident or fire a physical or sexual assault or abuse An earthquake or flood A war Seeing someone be killed or seriously injured Having a loved one through homicide or suicide 1. Have you ever experienced this kind of event? YES 2. Had nightmares about the event(s) or thought about the event(s) when you did not want to? NO 3. Tried hard not to think about the event(s) or went out of your way to avoid situations that reminded you of the event(s)? NO 4. Been constantly on guard, watchful, or easily startled? NO 5. Smiley numb or detached from people, activities, or your surroundings? NO 6. Smiley guilty or unable to stop blaming yourself or others for the event(s) or any problems the event(s) may have caused? NO [facility]VC DIGITAL DIVIDE CAPABILITY REMINDER: Patient is not interested in VVC at this time. 'S RIGHT TO DECLINE STATEMENT Steward understands they have the right to decline the use of Telehealth Technology at any time without adverse affects on their continued access to healthcare. HIV Screening-Routine: Patient has been offered HIV testing and has declined. I have explained that HIV testing is recommended for all adults, even if all risk factors are absent. 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 /es/ SEVERO APONTE Signed: 09/19/2024 13:38 Receipt Acknowledged By: * AWAITING SIGNATURE * FERNANDA CASTILLO 09/19/2024 16:16 /suki/ CLEMENTE VALENZUELA LPN 09/19/2024 ADDENDUM STATUS: COMPLETED Toxic Exposure Screening - CP,DI,L,NS,P,PH,S,U: The Steward/caregiver was asked if they believe the experienced any toxic exposure(s), such as Airborne Hazards and Open Burn [place], [place] related exposures, Agent Greenup, Radiation, contaminated water at [place] or other such exposures, while serving in the [employer]. Steward/caregiver believes the Steward was exposed to the following while serving in the [employer]: [place] contaminated water exposure: /caregiver was made aware of educational resources that includes information on presumptive conditions and how to file a claim. Printed information was offered and provided if desired. No questions at this time Steward/caregiver was informed of local points of contact. Contact information for local resources: [facility] Registry Exam Program: [phone] Eligibility: [phone] [id number] Toxic Exposure Screening Follow-Up reminder is needed. Name of person notified: DESIRAE Coker /suki/ CLEMENTE VALENZUELA LPN Signed: 09/19/2024 16:19 Receipt Acknowledged By: * AWAITING SIGNATURE * FERNANDA CASTILLO [facility]
--- OUTSIDE RECORDS SUMMARY | 2024-08-16 08:46 | XMS_ITS | Encounter Summary ---
Author Name [facility] Organization [facility] Address [address] [place] [address] Support Name Relationship Address Phone XUAN INMAN Next of Kin [address] [place] [address] [place] [address] XUAN INMAN Emergency Contact [address] [place] [address] [place] [address] Insurance Providers: All historical and current [...] MEDICARE ADVANTAGE MCR (WNR) Sep 12, 2022 [id number] JONATHAN INMAN PATIENT Selected Encounter This section includes the information on record at [place] for the Encounter. Date/Time Encounter Type Encounter Description Reason Provider Source Aug 16, 2024 01:46 PM OFFICE O/P NEW LOW 30 MIN PRIMARY CARE/MEDICINE ICD-10-CM I10 Essential (primary) hypertension FERNANDA CASTILLO [place] Encounter Template Text not used by [place] Assessments - Encounter Diagnoses This section includes the primary and secondary diagnoses documented for the Encounter. Date/Time Primary/Secondary Diagnosis Diagnosis Name Provider Source Aug 17, 2024 08:10 AM PRIMARY Essential (primary) hypertension [facility] Aug 17, 2024 08:10 AM SECONDARY Athscl heart disease of [place] coronary artery w/o ang pctrs FERNANDA CASTILLO [facility] Aug 17, 2024 08:10 AM SECONDARY Cerebrovascular disease, unspecified THROESCH,FERNANDA Sherman [facility] Aug 17, 2024 08:10 AM SECONDARY Contact with and exposure to other hazardous substances THROESCH,FERNANDA Sherman [facility] Aug 17, 2024 08:10 AM SECONDARY Disorder of the skin and subcutaneous tissue, unspecified THROESCH,FERNANDA Sherman [facility] Aug 17, 2024 08:10 AM SECONDARY Hyperlipidemia, unspecified THROESCH,FERNANDA Sherman [facility] Aug 17, 2024 08:10 AM SECONDARY Pain in unspecified ankle and joints of unspecified foot THROESCH,FERNANDA Sherman [facility] Aug 17, 2024 08:10 AM SECONDARY Pain in unspecified foot THROESCH,FERNANDA Sherman [facility] Aug 17, 2024 08:10 AM SECONDARY Unspecified hearing loss, unspecified ear THROESCH,TANVI [facility] Plan of Treatment: Future Appointments (+ 6 months) and Future Tests (+/- 45 days) The Plan of Treatment section includes future care activities for the patient from all [place] [facility]. This section includes future appointments and future orders which are active, pending or scheduled. Future Appointments This section includes appointments that were scheduled to occur 6 months from the date of the Encounter, up to a maximum of 20 appointments. The data comes from all [facility] facilities. Appointment Date/Time Appointment Type Appointme nt Facility Name Sep 11, 2024 08:00 AM AM[place]ULATORY [place]IC[place] [facility] Oct 22, 2024 09:30 AM AMBULATORY - MEDICINE [facility] Oct 22, 2024 09:31 AM [facility] Nov 26, 2024 12:00 PM AM[facility]ULATORY - MEDICINE [facility] Nov 26, 2024 12:01 PM [facility] [place] [facility] February 06, 2025 12:30 PM AMBULATORY - MEDICINE [facility] February 06, 2025 12:31 PM [facility] [place] [facility] Lab Results: +/- 30 days of the encounter This section includes the Chemistry and Hematology Lab Results on record with [place] for the patient. Radiology Reports and Pathology Reports are provided separately, in subsequent sections. Lab Results This section contains the Chemistry/Hematology Results that were resulted 30 days before or 30 daysafter the date of the Encounter. Date/Time Source Result Type Result - Unit Interpretation Reference Range Specimen Type Comment Jul 30, 2024 08:15 AM [facility] COMPREHENSIVE METABOLIC PANEL PLASMA Specimen Type: PLASMA No comment entered. Ordering Provider: KYLAH SHIN Report Released Date/Time: Jul 30, 2024 08:14 AM Reporting Lab: [place] [facility] [address] [place] [address] Performing Lab: [place] [facility] [address] [place] [address] CREATININE 1.01 mg/dL 0.7-1.3 UREA NITROGEN 14 [...] 2020) 82 Jul 30, 2024 08:15 AM [facility] PROST. SPECIFIC AG.(PB-STL) SERUM Specimen Ty pe: SERUM No comment entered. Ordering Provider: KYLAH SHIN Report Released Date/Time: Jul 30, 2024 08:14 AM Reporting Lab: [place] [facility] [address] [place] [address] Performing Lab: [place] [facility] [address] [place] [address] PROST. SPECIFIC AG.(PB-STL) 3.72 ng/mL 0 -4 Jul 30, 2024 08:15 AM [facility] TSH (MA-PB) SERUM Specimen Typ e: SERUM No comment entered. Ordering Provider: KYLAH SHIN Report Released Date/Time: Jul 30, 2024 08:14 AM Reporting Lab: [place] [facility] [address] [place] [address] Performing Lab: [place] [facility] [address] [place] [address] TSH 1.906 u[IU]/mL 0.47-5 Jul 30, 2024 08:15 AM [facility] CBC BLOOD Specimen Type: BLOOD No comment entered. Ordering Provider: KYLAH SHIN Report Released Date/Time: Jul 30, 2024 08:14 AM Reporting Lab: [place] [facility] [address] [place] [address] Performing Lab: [place] [facility] [address] [place] [facility] WBC 4.4 10*3/uL 3.6-11.2 RBC 5.07 10*6/uL [...] 0. 00-0.05 Jul 30, 2024 08:15 AM [facility] HGA1C BLOOD Specimen Type: BLOOD No comment entered. Ordering Provider: KYLAH SHIN Report Released Date/Time: Jul 30, 2024 08:14 AM Reporting Lab: [place] [facility] [address] [place] [address] Performing Lab: [place] [facility] [address] [place] [address] HGA1C 5.5 4.0-6.0 Jul 30, 2024 08:15 AM [facility] CHOLESTEROL PANEL (PB) PLASMA Specimen Type: Saul HARPER No comment entered. Ordering Provider: YKLAH SHIN Report Released Date/Time: Jul 30, 2024 08:14 AM Reporting Lab: [place] [facility] [address] [facility] [address] Performing Lab: [place] [facility] [address] [facility] [facility] [address] CHOLESTEROL 162 mg/dL 0-200 TRIGLYCERIDE 92 mg/dL 0-150 CALCULATED LDL 96.6 mg/dL HDL(New) 47.0 mg/dL H >40 HDL % OF TOTAL CHOLESTEROL (PB) 29.0 >25 Encounter Notes: All associated encounter notes This section contains the clinical notes associated to the Encounter. Date/Time Encounter Note(s) Provider Source Aug 17, 2024 07:57 AM PRIMARY CARE PROGR ESS NOTE: LOCAL TITLE: PRIMARY CARE CLINIC PROGRESS NOTE PB STANDARD TITLE: PRIMARY CARE PROGRESS NOTE DATE OF NOTE: AUG 17, 2024@07:57 ENTRY DATE: AUG 17, 2024@07:57:11 AUTHOR: FERNANDA CASTILLO COSIGNER: URGENCY: STATUS: COMPLETED PRIMARY CARE CLINIC PROGRESS NOTE PB Has ADDENDA SUBJECTIVE: JONATHAN INMAN is a 69 y.o.MALE. HPI: [place] contacted via Telehealth appointment due to location/staffing limitations. Patient is located at the [facility] for this appointment, whereas [facility] affiliated provider is located off-site utilizing remotely secured video connection. Patient is being seen for an establish apt today. [facility] He is followed by civilian provider as well as other specialist. He gets all of his meds through community care providers. He denies any issues or concerns today. He is wanting information about services the [facility] offers so we had long discussion regarding this. He was given the [place] officer's number to discuss further. Non-VA Primary Care Provider Dr. Jimy Conde Specialty Services 1. Cardiology Rupali Alston, Mtn. Home 2. Dr. Russo, ENT. 3. Dr. Tidwell Podiatry [place] 4. [place] in [place] Problem List 1) HTN - Hypertension 2) Hyperlipidemia 3) Hearing Loss 4) Skin Lesion 5) CAD - Coronary Artery Disease 6) CVD - Cerebrovascular Disease 7) Arthralgia of the ankle and/or foot Active Outpatient Medications (including Supplies): Patient reports taking medications as Ezetimibe 10mg daily, Azelastine HCL 0.1% 137mcg one spray in each nare, Nitroglycerin PRN Allergies: Patient has answered NKA Review of Systems Systemic: Denies fatique, fever, chills, or weight loss CV: Denies chest pain, palpitations Pulm: Denies hemoptysis GI: Denies constipation, bloody stools. Musculo- skeletal: Denies swelling Neuro: Denies slurred speech Skin: Denies abnormal lesions; denies any new rashes PSYCH: Denies SI/HI OBJECTIVE: Vital Signs Temperature: Respiratory Rate: 18 (08/16/2024 14:21) Pulse Rate: 68 (08/16/2024 14:23) Blood Pressure: 133/84 (08/16/2024 14:23) HT: 72.0 in [182.9 cm] (08/16/2024 14:21) WT: 189.3 lb [85.87 kg] (08/16/2024 14:21) BMI: 25.7 SPO2: 98% (08/16/2024 14:23) Vital Signs per chart to date and reviewed by signee. Physical Exam: exam completed utilising telecart with clear steth. General: NAD noted, A&Ox3, pleasant, appears stated age HEENT: NCAT Neck: Supple, normal ROM Heart: s1 s2 wnl, no murmurs noted. Resp: Respirations even and unlabored; CTA APL Abdomen: Non-distended appearing Musculo- skeletal: No obvious deformity Neuro: Grossly intact Psych: Affect normal, answers questions appropriately throughout visit A/P: ASSESSMENT and PLAN Health Maintenance: Labs pending. Discussed preventative health to include diet/exercise, immunizations and CRS. 1) HTN - controlled. no medication at this time. 2) Hyperlipidemia- labs pending, taking ezetimibe 3) Hearing Loss- seeing ent, has had hearing test which he failed. has f/u scheuled with Dr. Russo to discuss; will place ent consult to be covered under [facility]. 4) Skin Lesion- followed by dermatology in [place]. 5) CAD - Coronary Artery Disease- followed by cardiology in [place]; had CT of coronaries and was told he had some small blockages by cardiology. they are monitoring and tx with medication only at this time. 6) Arthralgia of the ankle and/or foot: chronic foot pain. broke foot several years ago and has had several surgeries. he believes he will have to have another surgery as pain is getting worse again. followed closely by podiatry, dr. tidwell, in [place]. Discussed health conditions listed above and medications with patient; med rec completed. Continue current regimen as prescribed by PCP and specialists. RTC as needed if developing any new or worsening symptoms. Please notify PACT with medication changes or for orders coordination as needed if seen by a specialist in the future. Will f/u with patient once updated labs / imaging / testing received; otherwise f/u as listed below. Follow-up: months and/or as needed. All questions answered; agrees to plan of care. Follow up as listed above, annually, and as needed. Keep all appointments. Medications Reconciled. Time spent 30 minutes. Discussed with patient that in the event of community imaging / testing being ordered in the future, once the imaging / testing has been completed, please notify PACT of completion at outside facility if not called with results within 1 week by a [facility] PACT member; this is due to intermittent lapses in notification of imaging completion within [facility]. Appointment was conducted via [place] Video Connect, Video to home, or Telehealth via in-person interview within the local [place] [facility] as discussed in note above. VVC / Video to home / Telehealth via in-person interview appointment information: The following items were reviewed: - The nature of telehealth, its benefits, and risks. - Confidentiality and its limits. - The importance of having a confidential location for the service. - The emergency plan. - The appointment should be treated like an in person appointment (no smoking or driving during session, showing up fully dressed, etc.) *The Virtual Medical Room locked for this encounter (VVC or Video to home). *A survey of the environment was conducted and it is appropriate to conduct a CVT/VVC appointment. *Confirmed [place]'s Non-VA location for appointment (VVC or Video to home). * was notified of right to decline Telehealth services and eligibility for other options. consented to be seen via CVT/VVC/Telehealth via in-person interview at local CBOC. EMERGENCY PLAN In the event of an emergency, the or family will call emergency services, if capable. Teleprovider will remain in the virtual medical room until emergency response arrives and handoff to emergency services is complete. If is unable to make emergency call, Teleprovider is to call the [employer] service at [phone] and ask to be connected to emergency services for the 's location. Crisis Hotline: 305.839.3692 [employer] Help Desk (NTTHD): 960.104.4468 or [phone] Verified Provider's location and contact information for this appointment: Other Location: [facility] or Remote from home /suki/ [facility] Signed: 08/17/2024 08:08 08/17/2024 ADDENDUM STATUS: COMPLETED Toxic Exposure Screening Follow-Up - NS,P: Exposure Concern(s): 08/16/2024 Airborne Hazards/Open Burn Pit - Toxic Exposure Concern Other Environmental Concerns - Toxic Exposure Concern Nuclear waste treament and Uranium, Radio activity lots. Radiation - Toxic Exposure Concern Follow-up Question(s): 08/16/2024 Registry Questions - Toxic Exposure Concern /caregiver has health or medical concerns related to their concern of environmental exposure. Concern: Airborne Hazards and Open Burn Pit The following connections were provided to the [place]/caregiver: [place] [employer] ([employer]) Fatou Martin: /suki/ [facility] Signed: 08/17/2024 08:09 09/24/2024 ADDENDUM STATUS: COMPLETED Toxic Exposure Screening Follow-Up - NS,P: Exposure Concern(s): 09/19/2024 [place] Related Exposures - Toxic Exposure Concern 08/16/2024 Airborne Hazards/Open Burn Pit - Toxic Exposure Concern Other Environmental Concerns - Toxic Exposure Concern Nuclear waste treament and Uranium, Radio activity lots. Radiation - Toxic Exposure Concern Follow-up Question(s): 09/19/2024 No Questions - Toxic Exposure Concern 08/16/2024 Registry Questions - Toxic Exposure Concern /caregiver has health or medical concerns related to their concern of environmental exposure. Concern: sae price The following connections were provided to the /caregiver: [place] [employer] ([employer]) Fatou Martin: /es/ [facility] Signed: 09/24/2024 09:15 FERNANDA CASTILLO [facility]
--- OUTSIDE RECORDS SUMMARY | 2024-10-22 04:31 | XMS_ITS | Encounter Summary ---
Author Name [facility] Organization [facility] [place] Address [address] [place] [address] Support Name Relationship Address Phone XUAN INMAN Next of Kin [address] [place] [address] [place] [address] XUAN INMAN Emergency Contact [address] [place] [address] [address] [place] [address] Insurance Providers: All historical and current [...] MEDICARE ADVANTAGE MCR (WNR) Sep 12, 2022 [id number] JONATHAN INMAN PATIENT Selected Encounter This section includes the information on record at [place] for the Encounter. Date/Time Encounter Type Encounter Description Reason Provider Source Oct 22, 2024 09:31 AM HEARING AID XM&SLCTN [facility] AUDIOLOGY ICD-10-CM H90.A21 Snsrnrl hear loss, uni, r ear, with rstrcd hear cntra side SAL JO RA E Encounter Template Text not used by [place] Assessments - Encounter Diagnoses This section includes the primary and secondary diagnoses documented for the Encounter. 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 This section includes future appointments and future orders which are active, pending or scheduled. Future Appointments This section includes appointments that were scheduled to occur 6 months from the date of the Encounter, up to a maximum of 20 appointments. The data comes from all [place] treatment [facility]. Appointment Date/Time Appointment Type Appointme nt Facility Name Nov 26, 2024 12:00 PM AMBULATORY - MEDICINE [facility] Nov 26, 2024 12:01 PM AMBULATORY - MEDICINE [facility] February 06, 2025 12:30 PM AMBULATORY - MEDICINE [facility] February 06, 2025 12:31 PM AMBULATORY - MEDICINE [facility] Encounter Notes: All associated encounter notes This section contains the clinical notes associated to the Encounter. Date/Time Encounter Note(s) Provider Source Oct 22, 2024 09:29 AM AUDIOLOGY NOTE: LOCAL TITLE: HEARING CLINIC PB STANDARD TITLE: AUDIOLOGY NOTE DATE OF NOTE: OCT 22, 2024@09:29 ENTRY DATE: OCT 22, 2024@09:29:31 AUTHOR: KASSANDRA JO COSIGNER: URGENCY: STATUS: COMPLETED HEARING CLINIC Has ADDENDA Diagnosis: Sensorineural Hearing Loss, Right and Mixed Hearing Loss, Left known left vestibular schwannoma (wait/watch) Treatment: Hearing Evaluation Time spent with : 60 minutes [place] seen for an audiogram via Audio Telehealth and verbally consented to the Telehealth modality. Multi-factor personally identifiable information of the was obtained verbally (full name and date of ). accompanied by: none Patient site: [facility] AUDIOLOGIC HISTORY: Patient seen today for a hearing evaluation. Patient was seen 04/02/2024 by a labor arbitrator hearing office* at [facility]. Testing showed sensorineural hearing loss, right and mixed hearing loss, left. He was referred by Dr. Russo for an MRI which revealed left vestibular schwannoma. Medical clearance has not been received from . Patient indicates results were discussed with Dr. Russo and they will wait/watch . - Ear surgery: no - Aural Pain/Pressure/Drainage: no - Tinnitus: no - Noise Exposure: yes HEARING DEVICES: none AUDIOMETRIC EXAM: Otoscopy was performed by collaboration of telehealth clinical computed tomography technician and provider via telehealth technology/video otoscope which revealed: Right: clear canal, singular white growth Left: unremarkable Tympanograms: Right: consistent with normal middle ear function Left: consistent with normal middle ear function Acoustic Reflex Thresholds: not performed due to time constraints Pure-Tone Air and Bone-Conduction Audiometric Testing revealed: Right: slight to moderately-severe sensorineural hearing loss Left: mild to profound mixed hearing loss Speech Recognition Threshold testing yielded: Right: 35 dBHL Left: 55 dBHL Word Recognition testing yielded: Right: 88% @ 80 dBHL Left: 48% @ 95 dBHL Word scoring may be impacted by quality of audio through telehealth medium. Test Reliability: Good PROVIDER COMMENTS/RECOMMENDATIONS: Hearing test results were reviewed with patient. Patient has known left vestibular schwannoma and indicates he was medically cleared for amplification by Dr. Russo's office. [place] has not yet received this documentation. Patient is a hearing aid candidate pending retrieval of medical clearance. Patient was counseled regarding realistic expectations for hearing aids, more specifically that hearing aids can make sounds louder but may not make speech more clear or understandable. Hearing conservation techniques were discussed and recommended. Hearing aid options were discussed, and ordered: PHONAK AUDEO I90-R KYLIE (right) PHONAK CROS I-R BTE (left) - R: 2M VOLLEYBALL ASSEMBLER 6.0 / L: 2-6.0 CROS - MEDIUM OPEN DOME - R: cerustop/ L: none Accessories: none. Declined interest in Iván. Phone Connectivity: not discussed PLAN: 1) Clinic is awaiting documentation of medical clearance from [facility]. Pending medical clearance, patient will be contacted for a hearing aid fitting. - Do NOT schedule patient for fitting until medical clearance is received. 2) Recommend hearing evaluation annually or prn. expressed understanding and is in agreement with the plan. /es/ Abiola Rueda [facility] Signed: 10/22/2024 10:41 11/14/2024 ADDENDUM STATUS: COMPLETED ENT consult closed without records. Several attempts made to retrieve records without success. Confirmation that visit occurred. Patient would like to proceed with hearing aids despite written verification of medical clearance. PLAN: RTC for 60 minute hearing aid fitting. /es/ Abiola Rueda [facility] Signed: 11/14/2024 10:[address] [facility]
--- OUTSIDE RECORDS SUMMARY | 2024-10-25 07:39 | XMS_ITS | Encounter Summary ---
Author Name [facility] [place] Organization [place] Address [address] [place] [address] Support Name Relationship Address Phone XUAN INMAN Next of Kin [address] [place] [address] [place] [address] XUAN INMAN Emergency Contact [address] [place] [address] [address] [place] [address] Insurance Providers: All historical and [...] MEDICARE ADVANTAGE MCR (WNR) Sep 12, 2022 [id number] JONATHAN INMAN PATIENT Selected Encounter This section includes the information on record at CT for the Encounter. Date/Time Encounter Type Encounter Description Reason Pro vider Source Oct 25, 2024 12:39 PM Outpatient Encounter ADMIN PAT ACTIVTIES (MASNONCT) IHE Encounter Template Text not used by CT Plan of Treatment: Future Appointments (+ 6 months) and Future Tests (+/- 45 days) The Plan of Treatment section includes future care activities for the patient from all CT treatmentfacilities. This section includes future appointments and future orders which are active, pending or scheduled. Future Appointments This section includes appointments that were scheduled to occur 6 months from the date of the Encounter, up to a maximum of 20 appointments. The data comes from all [place] treatment facilities. Appointment Date/Time Appointment Type Appointme nt Facility Name Nov 26, 2024 12:00 PM AMBULATORY - MEDICINE [facility] Nov 26, 2024 12:01 PM AMBULATORY - MEDICINE [facility] February 06, 2025 12:30 PM AMBULATORY - MEDICINE [facility] February 06, 2025 12:31 PM AMBULATORY - MEDICINE [facility] Social History: Smoking Status (Most current) and Tobacco Use (All prior to encounter date) This section includes the most current, and the historical, smoking and tobacco- related health factors from the [place] facility where the Encounter took place. Current Smoking Status This section includes the most current smoking, or tobacco-related health factor, from the [place] facility where the Encounter took place. Date/Time Current Smoking Status Comment Facil ity Aug 16, 2024 01:[address]-TOBACCO USE FORMER CIGARETTES [facility] Tobacco Use History This section includes a history of the smoking, or tobacco-related health factors, that were collected on or before the date of the Encounter. The data comes from the CT facility where the Encounter took place. Date/Time Smoking Status/Tobacco Use Comment F acility Aug 16, 2024 01:[address]-TOBACCO USE FORMER CIGARETTES [facility] Encounter Notes: All associated encounter notes This section contains the clinical notes associated to the Encounter. Date/Time Encounter Note(s) Provider Source Oct 25, 2024 12:39 PM GENERAL MEDICINE N OTE: LOCAL TITLE: General Note PB STANDARD TITLE: GENERAL MEDICINE NOTE DATE OF NOTE: OCT 25, 2024@12:39 ENTRY DATE: OCT 25, 2024@12:40:03 AUTHOR: ROSELYN PALMER EXP COSIGNER: URGENCY: STATUS: COMPLETED Received hearing aid devices, certified in [place]> We are waiting on records from ENT before scheduling fitting appt /suki/ ROSELYN PALMER Telehealth Clinical Countersinker Signed: 10/25/2024 12:40 Receipt Acknowledged By: 10/25/2024 12:48 /suki/ Abiola Rueda [facility] ROSELYN PALMER [facility]
--- OUTSIDE RECORDS SUMMARY | 2024-11-26 07:00 | XMS_ITS | Encounter Summary ---
Author Name [facility] [place] Organization [place] Address [address] [place] [id number] Support Name Relationship Address Phone XUAN INMAN Next of Kin [address] [place] [address] [place] [address] XUAN INMAN Emergency Contact [address] [place] [address] [place] [address] Insurance Providers: All historical and current [...] MEDICARE ADVANTAGE MCR (WNR) Sep 12, 2022 [id number] JONATHAN INMAN PATIENT Selected Encounter This section includes the information on record at [place] for the Encounter. Date/Time Encounter Type Encounter Description Reason Provider Source Nov 26, 2024 12:00 PM TELEHEALTH FACILITY FEE AUDIOLOGY ICD-10-CM Z46.1 Encounter for fitting and adjustment of hearing aid SAL JO RA [facility] Encounter Template Text not used by [place] Assessments - Encounter Diagnoses This section includes the primary and secondary diagnoses documented for the Encounter. Date/Time Primary/Secondary Diagnosis Diagnosis Name Provider Source Nov 26, 2024 11:57 AM PRIMARY Encounter for fitting and adjustment of hearing aid BETTY PALMER [facility] Nov 26, 2024 11:57 AM SECONDARY Mix cndct/snrl hear loss,uni,l ear w rstrcd hear cntra side BETTY PALMER [facility] Nov 26, 2024 11:57 AM SECONDARY Snsrnrl hear loss, uni, r ear, with rstrcd hear cntra side [facility]TY PALMER [facility] Plan of Treatment: Future Appointments (+ 6 months) and Future Tests (+/- 45 days) The Plan of Treatment section includes future care activities for the patient from all [place] treatmentfacilities. This section includes future appointments and future orders which are active, pending or scheduled. Future Appointments This section includes appointments that were scheduled to occur 6 months from the date of the Encounter, up to a maximum of 20 appointments. The data comes from all [place] treatment facilities. Appointment Date/Time Appointment Type Appointme nt Facility Name February 06, 2025 12:30 PM AM[facility]ULATORY [facility] MEDICINE [facility] February 06, 2025 12:31 PM AMBULATORY - MEDICINE [facility] Social History: Smoking Status (Most current) and Tobacco Use (All prior to encounter date) This section includes the most current, and the historical, smoking and tobacco- related health factors from the [place] facility where the Encounter took place. Current Smoking Status This section includes the most current smoking, or tobacco-related health factor, from the [place] facility where the Encounter took place. Date/Time Current Smoking Status Comment Facil ity Aug 16, 2024 01:45 PM [place]-TOBACCO USE FORMER CIGARETTES [facility] Tobacco Use History This section includes a history of the smoking, or tobacco-related health factors, that were collected on or before the date of the Encounter. The data comes from the [place] facility where the Encounter took place. Date/Time Smoking Status/Tobacco Use Comment F acility Aug 16, 2024 01:45 PM [place]-TOBACCO USE FORMER CIGARETTES [facility] Encounter Notes: All associated encounter notes This section contains the clinical notes associated to the Encounter. Date/Time Encounter Note(s) Provider Source Nov 26, 2024 11:55 AM AUDIOLOGY NOTE: LOCAL TITLE: HEARING CLINIC STANDARD TITLE: AUDIOLOGY NOTE DATE OF NOTE: NOV 26, 2024@11:55 ENTRY DATE: NOV 26, 2024@11:55:38 AUTHOR: ROSELYN PALMER EXP COSIGNER: URGENCY: STATUS: COMPLETED seen for a hearing aid fitting via Audio Telehealth and verbally consented to the Telehealth modality. Multi-factor personally identifiable information of the was obtained verbally (full name and date of ). [place] accompanied by: none Patient site: [facility] SUBJECTIVE: Patient is here for the issue of new hearing aids. [place] is new to amplification. HEARING DEVICES: [place] was fit with the following hearing devices and accessories today: 11/2024 PHONAK AUDEO I90-R KYLIE R [id number] 11/22/27 04/21/2511/2024 PHONAK CROS I-R BTE L [id number] 11/22/27 04/21/25 - R: 2M JAIL GUARD 6.0 / L: 2-6.0 CROS - MEDIUM OPEN DOME - R: cerustop/ L: none - RETENTION TAIL Otoscopic: Used [facility] ENT (otoscope) to present inner ears over Tele-Med to Operations Lieutenant. Placed FreeFit on and inserted probe tubes and hearing aids. was counseled by telemedicine experimental technician regarding: ( x ) COMPONENTS OF HIS HEARING AIDS / PERIPHERAL DEVICES (x ) INSERTION AND REMOVAL OF HEARING AIDS ( ) INSERTION AND REMOVAL OF BATTERIES ( x ) TYPICAL BATTERY LIFE / BATTERY SIZE ( ) USE OF DRY AID KIT ONCE RECEIVED ( x ) PROTOCOL FOR BATTERY AND SUPPLY REFILLS VIA [facility] ( x ) TROUBLE SHOOTING OF DEVICES ( x ) WAX TRAP REPLACEMENT / EARMOLD - DOME CLEANING ( x ) DAILY CLEANING / MAINTENANCE OF DEVICES The [place] practiced insertion, removal and volume control use. The was issued two-six count of batteries out of [facility] stock. Size: ( ) 13 ( ) 312 ( 675 ( ) 10 The has been issued the [employer]-[place] and asked to fill it out and return it by mail 4 weeks post F&A. The [place] will contact the audiology department in the event of soreness, irritation, problem with the hearing aids, general questions etc. /suki/ ROSELYN PALMER Telehealth Clinical Cement Paver Signed: 11/26/2024 11:57 ROSELYN PALMER [facility] Nov 23, 2024 02:47 PM GENERAL MEDICINE N OTE: LOCAL TITLE: General Note PB STANDARD TITLE: GENERAL MEDICINE NOTE DATE OF NOTE: NOV 23, 2024@14:47 ENTRY DATE: NOV 23, 2024@14:47:19 AUTHOR: ANTONIO STARK EXP COSIGNER: URGENCY: STATUS: COMPLETED Unable to reach patient to confirm audiology appt on 11/26. No Answer. /JOSE Serrano [facility] Signed: 11/23/2024 14:[address] [facility]
--- OUTSIDE RECORDS SUMMARY | 2024-11-26 07:01 | XMS_ITS | Encounter Summary ---
Author Name Department of [place] Organization [place] Address [address] [place] [phone] Support Name Relationship Address Phone XUAN INMAN Next of Kin [address] [place] [address] [place] [address] XUAN INMAN Emergency Contact [address] [place] [address] [place] [address] Insurance Providers: All historical and current [...] Name Patient's Relationship to Policy [place]ajas HUMANA [facility] (WNR) MEDICARE ADVANTAGE MCR (WNR) Sep 12, 2022 [id number] JONATHAN INMAN PATIENT Selected Encounter This section includes the information on record at [place] for the Encounter. Date/Time Encounter Type Encounter Description Reason Provider Source Nov 26, 2024 12:01 PM CONFORMITY EVALUATION AUDIOLOGY ICD-10-CM Z46.1 Encounter for fitting and adjustment of hearing aid SAL JO RA [facility] Encounter Template Text not used by [place] Assessments - Encounter Diagnoses This section includes the primary and secondary diagnoses documented for the Encounter. Date/Time Primary/Secondary Diagnosis Diagnosis Name Provider Source Nov 26, 2024 11:42 AM PRIMARY Encounter for fitting and adjustment of hearing aid SAMREEN JO [facility] Nov 26, 2024 11:42 AM SECONDARY Mix cndct/snrl hear loss,uni,l ear w rstrcd hear cntra side SAMREEN JO [facility] Nov 26, 2024 11:42 AM SECONDARY Snsrnrl hear loss, uni, r ear, with rstrcd hear cntra side SAMREEN JO [facility] Plan of Treatment: Future Appointments (+ 6 months) and Future Tests (+/- 45 days) The Plan of Treatment section includes future care activities for the patient from all [place] treatmentfacilities. This section includes future appointments and future orders which are active, pending or scheduled. Future Appointments This section includes appointments that were scheduled to occur 6 months from the date of the Encounter, up to a maximum of 20 appointments. The data comes from all [place] treatment facilities. Appointment Date/Time Appointment Type Appointme nt Facility Name February 06, 2025 12:30 PM AMBULATORY - MEDICINE [facility] February 06, 2025 12:31 PM AMBULATORY - MEDICINE [facility] Encounter Notes: All associated encounter notes This section contains the clinical notes associated to the Encounter. Date/Time Encounter Note(s) Provider Source Nov 26, 2024 07:08 AM AUDIOLOGY NOTE: LOCAL TITLE: HEARING CLINIC STANDARD TITLE: AUDIOLOGY NOTE DATE OF NOTE: NOV 26, 2024@07:08 ENTRY DATE: NOV 26, 2024@07:08:30 AUTHOR: KASSANDRA JO COSIGNER: URGENCY: STATUS: COMPLETED Diagnosis: Sensorineural Hearing Loss, Right and Mixed Hearing Loss, Left known left vestibular schwannoma (wait/watch) Treatment: Hearing Aid Fitting Time spent with [place]: 60 minutes seen for a hearing aid fitting via Audio Telehealth and verbally consented to the Telehealth modality. Multi-factor personally identifiable information of the was obtained verbally (full name and date of ). [place] accompanied by: none Patient site: [place] [facility] SUBJECTIVE: Patient is here for the issue of new hearing aids. [place] is new to amplification. HEARING DEVICES: was fit with the following hearing devices and accessories today: 11/2024 PHONAK AUDEO I90-R KYLIE R [id number] 11/22/27 04/21/2511/2024 PHONAK CROS I-R BTE L [id number] 11/22/27 04/21/25 - R: 2M JUNIOR SYSTEMS ADMINISTRATOR 6.0 / L: 2-6.0 CROS - MEDIUM OPEN DOME - R: cerustop/ L: none - RETENTION TAIL Phone Connectivity: no OBJECTIVE/ASSESSMENT: Otoscopy was performed by collaboration of telehealth clinical geoscience technician and provider via telehealth technology/video otoscope which revealed: Right: clear canal, singular growth Left: unremarkable Probe-Microphone Measures: Conformity evaluation was performed using real ear measures with NAL-NL2 ([employer]) targets. Maximum output was within the predicted upper limit of comfort. Hearing aids set to 95% target gain per patient subjective listening preference. Feedback network architect manager completed. Familiarized patient with sound indicators (low battery signal, volume control, etc.). Device(s) issued in Remote Building Repair Maintenance Supervisor System. Physical Fit/Comfort: Good per patient. Sound Quality: Good per patient. Settings: - Programs: Automatic - Volume control: short press (right/volume, left/sensitivity) - Program change: medium press - On/Off device: long press DIRECT PATIENT EDUCATION-30 minutes [place] educated on: - Use of batteries/civil preparedness officer - Hearing aid care and maintenance - Adjustment period/ importance of daily consistent use (8- 12hrs/day) - Realistic expectations - Effective communication strategies - Pet/child warning - Patient instructed not to wear devices in excessive noise - Installation and use of additional accessories - Ordering supplies through [facility] - Repair process - Trial period demonstrated how to: - Insert/remove hearing aid(s) - Adjust volume control/program switch - Change batteries/charge hearing aid(s) was provided: - Hearing aid manual - [place] form 2477b [place] was counseled/educated on services provided today and is in agreement with the plan. Patient was given clinic phone number and encouraged to contact the clinic as needs arise. PLAN: Return to clinic for follow up/check. Please complete outcome measures questionnaire at that time. /suki/ Abiola Rueda [facility] Signed: 11/26/2024 11:54 KASSANDRA JO [facility]
--- OUTSIDE RECORDS SUMMARY | 2025-02-06 07:31 | XMS_ITS | Encounter Summary ---
Author Name Department of [place] Organization [place] Address [address] [place] [phone] Support Name Relationship Address Phone XUAN INMAN Next of Kin [address] [place] [address] [place] [address] XUAN INMAN Emergency Contact [address] [place] [address] [place] [address] Insurance Providers: All historical and current [...] Name Patient's Relationship to Policy Barajas [employer] [facility] (WNR) MEDICARE ADVANTAGE [facility] (WNR) Sep 12, 2022 [id number] JONATHAN INMAN PATIENT Selected Encounter This section includes the information on record at [place] for the Encounter. Date/Time Encounter Type Encounter Description Reason Provider Source February 06, 2025 12:31 PM HEARING SERVICE AUDIOLOGY ICD-10-CM Z46.1 Encounter for fitting and adjustment of hearing aid SAL JO RA E Encounter Template Text not used by [place] Assessments - Encounter Diagnoses This section includes the primary and secondary diagnoses documented for the Encounter. Date/Time Primary/Secondary Diagnosis Diagnosis Name Provider Source February 06, 2025 12:09 PM PRIMARY Encounter for fitting and adjustment of hearing aid SAMREEN JO [facility] February 06, 2025 12:09 PM SECONDARY Mix cndct/snrl hear loss,uni,l ear w rstrcd hear cntra side SAMREEN JO [facility] February 06, 2025 12:09 PM SECONDARY Snsrnrl hear loss, uni, r ear, with rstrcd hear cntra side SAMREEN JO [facility] Encounter Notes: All associated encounter notes This section contains the clinical notes associated to the Encounter. Date/Time Encounter Note(s) Provider Source February 06, 2025 07:15 AM AUDIOLOGY NOTE: LOCAL TITLE: HEARING CLINIC PB STANDARD TITLE: AUDIOLOGY NOTE DATE OF NOTE: FEBRUARY 06, 2025@07:15 ENTRY DATE: FEBRUARY 06, 2025@07:15:07 AUTHOR: KASSANDRA JO COSIGNER: URGENCY: STATUS: COMPLETED Diagnosis: Sensorineural Hearing Loss, Right and Mixed Hearing Loss, Left known left vestibular schwannoma (wait/watch) Treatment: Hearing Aid Follow Up Time spent with : 30 minutes seen for a hearing aid check via Audio Telehealth and verbally consented to the Telehealth modality. Multi-factor personally identifiable information of the was obtained verbally (full name and date of ). [place] accompanied by: none Patient site: [place] ____ HISTORY: was previously seen for the fitting of new hearing aids. Patient returns today for follow up. reports acclimating well to the hearing aids and feels they are beneficial. [place] reports receiving the first shipment of supplies in the mail. CURRENT HEARING DEVICES: 11/2024 PHONAK AUDEO I90-R KYLIE R [id number] 11/22/27 04/21/2511/2024 PHONAK CROS I-R BTE L [id number] 11/22/27 04/21/25 - R: 2M ENAMEL BURNER 6.0 / L: 2-6.0 CROS - MEDIUM OPEN DOME - R: cerustop/ L: none - RETENTION TAIL Phone Connectivity: no OBJECTIVE/ASSESSMENT: Otoscopy was performed by collaboration of telehealth clinical gallery or museum technician and provider via telehealth technology/video otoscope which revealed: Right: clear canal, singular tissue-colored growth Left: unremarkable Visual inspection of both hearing aids revealed no damage/defects. Devices were cleaned and checked including replacement of filters/domes. A listening check performed by TCT revealed proper function. Patient was re-instructed on hearing aid maintenance and re-educated on ordering more supplies when needed. International Outcome Inventory for Hearing Aids administered and saved in ROES. The was counseled/educated on services provided today and is in agreement with the plan. PLAN: Return to clinic as needed. /suki/ Abiola Ruedang [facility] Signed: 02/06/2025 12:13 KASSANDRA JO [facility]
--- OUTSIDE RECORDS SUMMARY | 2025-03-13 02:22 | XMS_ITS | Continuity of Care Document ---
Author Name [facility] Organization [facility] Care Team Providers Care [employer] Heating [employer]or Name Role Phone [facility] Unavailable Unavailable Problems Combined list of problems from Department of Defense and [facility] facilities. It does not include entries that were removed or entered in error. Problem Status Onset Date Problem Type Date of Resolution Comments Source Arthralgia of the ankle and/or foot [facility] CAD - Coronary Artery Disease ([facility] [id number]) Active Condition [facility] [place] [facility] CVD - Cerebrovascular Disease ([facility] [id number]) Active Condition [facility] Exposure to potentially hazardous substance ([facility] [id number]) Active Condition Aug 22 Entered By: ARGELIA CHAVEZ Comment: Entered automatically through JONY Problem List documentation program [facility] Hearing Loss ([facility] [id number]) Active Condition [facility] HTN - Hypertension ([facility] [id number]) Active Condition [facility] Hyperlipidemia ([facility] [id number]) Active Condition [facility] 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 [facility] Sensorineural hearing loss of right ear Active Condition [facility] Skin Lesion ([facility] [id number]) [facility] Vestibular schwannoma Active Condition [facility] Diagnosis: ICD-10-CM Z46.1 Encounter for fitting and adjustment of hearing aid Active Diagnosis [facility] Diagnosis: ICD-10-CM H90.A21 Snsrnrl hear loss, uni, r ear, with rstrcd hear cntra side Active Diagnosis [facility] Diagnosis: ICD-10-CM I10 Essential (primary) hypertension Active Diagnosis [facility] Medications Combined list of outpatient medications from Department of Defense and [facility] facilities.Medications provided include 1) outpatient medications from the last 15 months, and 2) patient-reported medications. Medication Details Route Status Patient Instructions Prescription Expires Prescription Number Last Dispense Date Ordering Provider Order Date Order Qty Source AZELASTINE HCL 137MCG/FLUT ICASONE 50MCG/SPRAY SOLN,NASAL, 120D 1 SPRAY NOSTRIL( S) TWICE A DAY NASAL ACTIVE ANNAFERNANDA 2023 [facility] EZETIMIBE 10MG TAB TAKE ONE TABLET BY MOUTH ONCE A DAY ORAL ACTIVE ANNA, FERNANDA Sherman 2023 [facility] NITROGLYCER IN 0.4MG TAB,SUBLING UAL DISSOLVE ONE TABLET UNDER THE TONGUE ONE-TIME SUBLIN GUAL ACTIVE [facility] Immunizations Combined list of available immunizations from the Department of Defense and Veterans Affairs facilities. Immunization Series Date Given Administered By Site Reaction Lot Number CVX Code Drug Automatic Developer Status Comments Source COVID-19 ([employer]), MRNA, LNP-S, PF, 30 MCG/0.3 ML DOSE 2 2020 208 complet ed HISTORICA L INFORMATI ON - FROM OTHER REGISTRY, [facility] TDAP 1 2020 115 complet ed HISTORICA L INFORMATI ON - FROM OTHER [facility], [facility] ZOSTER RECOMBINANT 2 2020 187 complet ed HISTORICA L INFORMATI ON - FROM OTHER [facility], [facility] ZOSTER RECOMBINANT 1 2020 187 complet ed HISTORICA L INFORMATI ON - FROM OTHER REGISTRY, [facility] COVID-19 ([employer]), MRNA, LNP-S, PF, 30 MCG/0.3 ML DOSE 1 2020 208 complet ed HISTORICA L INFORMATI ON - FROM OTHER REGISTRY, [facility] YELLOW FEVER LIVE 1 1999 37 complet ed HISTORICA L INFORMATI ON - FROM OTHER [facility], [facility] Results Combined list of recent chemistry, hematology and other laboratory results from Department of Defense and Veterans Affairs, ranging from 15 months to all on record, depending upon the facility. Order Name Results Value Reference Range Date Interpretation Specimen Comments Source COMPREHENSI VE METABOLIC PANEL CREATININE [MASS/VOLUME] IN SERUM OR PLASMA 1.01 mg/dL 0.7 - 1.3 07/30 Specimen Type: PLASMA No comment entered. Ordering Provider: KYLAH SHIN Report Released Date/Time : Jul 30, 2024 08:14 AM Reporting Lab: [place] [facility] [address] [place] [address] Performin g Lab: [place] [facility] [address] [place] [address] [facility] COMPREHENSI VE METABOLIC PANEL UREA NITROGEN [MASS/VOLUME] IN SERUM OR PLASMA 14 mg/dL 9 - 25 07/30 Specimen Type: PLASMA No comment entered. Ordering Provider: KYLAH SHIN Report Released Date/Time : Jul 30, 2024 08:14 AM Reporting Lab: [place] [facility] [address] [place] [address] 8 Performin g Lab: [place] [facility] [address] [place] [address] [facility] COMPREHENSI VE METABOLIC PANEL GLUCOSE [MASS/VOLUME] IN SERUM OR PLASMA 103 mg/dL 72 - 99 07/30 H Specimen Type: PLASMA No comment entered. Ordering Provider: KYLAH SHIN Report Released Date/Time : Jul 30, 2024 08:14 AM Reporting Lab: [place] [facility] [address] [place] [address] Performin g Lab: [place] [facility] [address] [place] [address] [facility] COMPREHENSI VE METABOLIC PANEL SODIUM [MOLES/VOLUME ] IN SERUM OR PLASMA 139 meq/L 136 - 145 07/30 Specimen Type: PLASMA No comment entered. Ordering Provider: KYLAH SHIN Report Released Date/Time : Jul 30, 2024 08:14 AM Reporting Lab: [place] [facility] [address] [place] [address] 8 Performin g Lab: [place] [facility] [address] [place] [address] 8 [facility] COMPREHENSI VE METABOLIC PANEL POTASSIUM [MOLES/VOLUME ] IN SERUM OR PLASMA 3.8 meq/L 3.5 - 5 07/30 Specimen Type: PLASMA No comment entered. Ordering Provider: KYLAH SHIN Report Released Date/Time : Jul 30, 2024 08:14 AM Reporting Lab: [place] [facility] [address] [place] [address] 8 Performin g Lab: [place] [facility] [address] [place] [address] 8 [facility] COMPREHENSI VE METABOLIC PANEL CHLORIDE [MOLES/VOLUME ] IN SERUM OR PLASMA 107 meq/L 98 - 107 07/30 Specimen Type: PLASMA No comment entered. Ordering Provider: KYLAH SHIN Report Released Date/Time : Jul 30, 2024 08:14 AM Reporting Lab: [place] [facility] [address] [place] [address] 8 Performin g Lab: [place] [facility] [address] [place] [address] [facility] COMPREHENSI VE METABOLIC PANEL CARBON DIOXIDE, TOTAL [MOLES/VOLUME ] IN SERUM OR PLASMA 25 meq/L 22 - 31 07/30 Specimen Type: PLASMA No comment entered. Ordering Provider: KYLAH SHIN Report Released Date/Time : Jul 30, 2024 08:14 AM Reporting Lab: [place] [facility] [address] [place] [address] 8 Performin g Lab: [place] [facility] [address] [place] [address] [facility] COMPREHENSI VE METABOLIC PANEL CALCIUM [MASS/VOLUME] IN SERUM OR PLASMA 9.0 mg/dL 8.4 - 10.4 07/30 Specimen Type: PLASMA No comment entered. Ordering Provider: KYLAH SHIN Report Released Date/Time : Jul 30, 2024 08:14 AM Reporting Lab: [place] [facility] [address] [place] [address] 8 Performin g Lab: [place] [facility] [address] [place] [address] [facility] COMPREHENSI VE METABOLIC PANEL PROTEIN [MASS/VOLUME] IN SERUM OR PLASMA 6.5 g/dL 6 - 8.6 07/30 Specimen Type: PLASMA No comment entered. Ordering Provider: KYLAH SHIN Report Released Date/Time : Jul 30, 2024 08:14 AM Reporting Lab: [place] [facility] [address] [place] [address] 8 Performin g Lab: [place] [facility] [address] [place] [address] [facility] COMPREHENSI VE METABOLIC PANEL ALBUMIN [MASS/VOLUME] IN SERUM OR PLASMA 4.1 g/dL 3.4 - 5 07/30 Specimen Type: PLASMA No comment entered. Ordering Provider: KYLAH SHIN Report Released Date/Time : Jul 30, 2024 08:14 AM Reporting Lab: [place] [facility] [address] [place] [address] 8 Performin g Lab: [place] [facility] [address] [place] [address] 8 [facility] COMPREHENSI VE METABOLIC PANEL BILIRUBIN.TOT AL [MASS/VOLUME] IN SERUM OR PLASMA 0.7 mg/dL 0.2 - 1.2 07/30 Specimen Type: PLASMA No comment entered. Ordering Provider: KYLAH SHIN Report Released Date/Time : Jul 30, 2024 08:14 AM Reporting Lab: [place] [facility] [address] [place] [address] 8 Performin g Lab: [place] [facility] [address] [place] [address] [facility] COMPREHENSI VE METABOLIC PANEL ALKALINE PHOSPHATASE [ENZYMATIC ACTIVITY/VOLU ME] IN SERUM OR PLASMA 57 U/L 40 - 150 07/30 Specimen Type: PLASMA No comment entered. Ordering Provider: KYLAH SHIN Report Released Date/Time : Jul 30, 2024 08:14 AM Reporting Lab: [place] [facility] [address] [place] [address] 8 Performin g Lab: [place] [facility] [address] [place] [address] [facility] COMPREHENSI VE METABOLIC PANEL ASPARTATE AMINOTRANSFER ASE [ENZYMATIC ACTIVITY/VOLU ME] IN SERUM OR PLASMA 15 U/L 5 - 34 07/30 Specimen Type: PLASMA No comment entered. Ordering Provider: KYLAH SHIN Report Released Date/Time : Jul 30, 2024 08:14 AM Reporting Lab: [place] [facility] [address] [place] [address] 8 [place]formin [facility] [place]: [place] [facility] [address] [place] [address] 8 [facility] COMPREHENSI VE METABOLIC PANEL ALANINE AMINOTRANSFER ASE [ENZYMATIC ACTIVITY/VOLU ME] IN SERUM OR PLASMA 15 U/L 8 - 40 07/30 Specimen Type: PLASMA No comment entered. Ordering Provider: KYLAH SHIN Report Released Date/Time : Jul 30, 2024 08:14 AM Reporting Lab: [place] [facility] [address] [place] [address] 8 Performin g Lab: [place] [facility] [address] [place] [address] 8 [facility] COMPREHENSI VE METABOLIC PANEL GLOMERULAR FILTRATION RATE/1.73 SQ M.PREDICTED [VOLUME RATE/AREA] IN SERUM, PLASMA OR BLOOD BY CREATININE-BA SED FORMULA (CKD-EPI 2020) 82 07/30 Specimen Type: PLASMA No comment entered. Ordering Provider: KYLAH SHIN Report Released Date/Time : Jul 30, 2024 08:14 AM Reporting Lab: [place] [facility] [address] [place] [address] 8 Performin g Lab: [place] [facility] [address] [place] [address] 8 [facility] PROST. SPECIFIC AG.(PB-STL) PROSTATE SPECIFIC AG [MASS/VOLUME] IN SERUM OR PLASMA 3.72 ng/mL 0 - 4 07/30 Specimen Type: SERUM No comment entered. Ordering Provider: KYLAH SHIN Report Released Date/Time : Jul 30, 2024 08:14 AM Reporting Lab: [place] [facility] [address] [place] [address] 8 Performin g Lab: [place] [facility] [address] [place] [address] 8 [facility] TSH (MA-PB) THYROTROPIN [UNITS/VOLUME ] IN SERUM OR PLASMA 1.906 u[IU]/ mL 0.47 - 5 07/30 Specimen Type: SERUM No comment entered. Ordering Provider: KYLAH SHIN Report Released Date/Time : Jul 30, 2024 08:14 AM Reporting Lab: [place] [facility] [address] [place] [address] 8 Performin g Lab: [place] [facility] [address] [place] [address] 8 [facility] CBC LEUKOCYTES [#/VOLUME] IN BLOOD BY AUTOMATED COUNT 4.4 10*3/u L 3.6 - 11.2 07/30 Specimen Type: BLOOD No comment entered. Ordering Provider: KYLAH SHIN Report Released Date/Time : Jul 30, 2024 08:14 AM Reporting Lab: [place] [facility] [address] [place] [address] 8 Performin g Lab: [place] [facility] [address] [place] [address] 8 [facility] CBC ERYTHROCYTES [#/VOLUME] IN BLOOD BY AUTOMATED COUNT 5.07 10*6/u L 4.10 - 5.70 07/30 Specimen Type: BLOOD No comment entered. Ordering Provider: KYLAH SHIN Report Released Date/Time : Jul 30, 2024 08:14 AM Reporting Lab: [place] [facility] [address] [place] [address] 8 Performin g Lab: [place] [facility] [address] [place] [address] [facility] CBC HEMOGLOBIN [MASS/VOLUME] IN BLOOD 14.9 g/dL 13.1 - 16.8 07/30 Specimen Type: BLOOD No comment entered. Ordering Provider: KYLAH SHIN Report Released Date/Time : Jul 30, 2024 08:14 AM Reporting Lab: [place] [facility] [address] [place] [address] 8 Performin g Lab: [place] [facility] [address] [place] [address] 8 [facility] CBC HEMATOCRIT [VOLUME FRACTION] OF BLOOD 43.9 38.2 - 48.4 07/30 Specimen Type: BLOOD No comment entered. Ordering Provider: KYLAH SHIN Report Released Date/Time : Jul 30, 2024 08:14 AM Reporting Lab: [place] [facility] [address] [place] [address] 8 Performin g Lab: [place] [facility] [address] [place] [address] 8 [facility] CBC MCV [ENTITIC VOLUME] BY AUTOMATED COUNT 86.6 fL 80.0 - 100.0 07/30 Specimen Type: BLOOD No comment entered. Ordering Provider: KYLAH SHIN Report Released Date/Time : Jul 30, 2024 08:14 AM Reporting Lab: [place] [facility] [address] [place] [address] 8 Performin g Lab: [place] [facility] [address] [place] [address] 8 [facility] CBC MCH [ENTITIC MASS] BY AUTOMATED COUNT 29.4 pg 27.0 - 34.0 07/30 Specimen Type: BLOOD No comment entered. Ordering Provider: KYLAH SHIN Report Released Date/Time : Jul 30, 2024 08:14 AM Reporting Lab: [place] [facility] [address] [place] [address] 8 Performin g Lab: [place] [facility] [address] [place] [address] 8 [facility] CBC MCHC [MASS/VOLUME] BY AUTOMATED COUNT 33.9 g/dL 33.0 - 36.0 07/30 Specimen Type: BLOOD No comment entered. Ordering Provider: KYLAH SHIN Report Released Date/Time : Jul 30, 2024 08:14 AM Reporting Lab: [place] [facility] [address] [place] [address] 8 Performin g Lab: [place] [facility] [address] [place] [address] [facility] CBC PLATELETS [#/VOLUME] IN BLOOD BY AUTOMATED COUNT 199 10*3/u L 150 - 400 07/30 Specimen Type: BLOOD No comment entered. Ordering Provider: KYLAH SHIN Report Released Date/Time : Jul 30, 2024 08:14 AM Reporting Lab: [place] [facility] [address] [place] [address] 8 Performin g Lab: [place] [facility] [address] [place] [address] 8 [facility] CBC PLATELET MEAN VOLUME [ENTITIC VOLUME] IN BLOOD BY AUTOMATED COUNT 9.1 fL 7.5 - 11.2 07/30 Specimen Type: BLOOD No comment entered. Ordering Provider: KYLAH SHIN Report Released Date/Time : Jul 30, 2024 08:14 AM Reporting Lab: [place] [facility] [address] [place] [address] 8 Performin g Lab: [place] [facility] [address] [place] [address] 8 [facility] CBC ERYTHROCYTE DISTRIBUTION WIDTH [RATIO] BY AUTOMATED COUNT 13.1 11.8 - 15.1 07/30 Specimen Type: BLOOD No comment entered. Ordering Provider: KYLAH SHIN Report Released Date/Time : Jul 30, 2024 08:14 AM Reporting Lab: [place] [facility] [address] [place] [address] 8 Performin g Lab: [place] [facility] [address] [place] [address] [facility] CBC LYMPHOCYTES/1 00 LEUKOCYTES IN BLOOD BY AUTOMATED COUNT 31.9 07/30 Specimen Type: BLOOD No comment entered. Ordering Provider: KYLAH SHIN Report Released Date/Time : Jul 30, 2024 08:14 AM Reporting Lab: [place] [facility] [address] [place] [address] 8 Performin g Lab: [place] [facility] [address] [place] [address] 8 [facility] CBC MONOCYTES/100 LEUKOCYTES IN BLOOD BY AUTOMATED COUNT 10.9 07/30 Specimen Type: BLOOD No comment entered. Ordering Provider: KYLAH SHIN Report Released Date/Time : Jul 30, 2024 08:14 AM Reporting Lab: [place] [facility] [address] [place] [address] 8 Performin g Lab: [place] [facility] [address] [place] [address] 8 [facility] CBC NEUTROPHILS/1 00 LEUKOCYTES IN BLOOD BY AUTOMATED COUNT 49.3 07/30 Specimen Type: BLOOD No comment entered. Ordering Provider: KYLAH SHIN Report Released Date/Time : Jul 30, 2024 08:14 AM Reporting Lab: [place] [facility] [address] [place] [address] 8 Performin g Lab: [place] [facility] [address] [place] [address] [facility] CBC EOSINOPHILS/1 00 LEUKOCYTES IN BLOOD BY AUTOMATED COUNT 5.9 07/30 Specimen Type: BLOOD No comment entered. Ordering Provider: KYLAH SHIN Report Released Date/Time : Jul 30, 2024 08:14 AM Reporting Lab: [place] [facility] [address] [place] [address] 8 Performin g Lab: [place] [facility] [address] [place] [address] 8 [facility] CBC BASOPHILS/100 LEUKOCYTES IN BLOOD BY AUTOMATED COUNT 1.8 07/30 Specimen Type: BLOOD No comment entered. Ordering Provider: KYLAH SHIN Report Released Date/Time : Jul 30, 2024 08:14 AM Reporting Lab: [place] [facility] [address] [place] [address] 8 Performin g Lab: [place] [facility] [address] [place] [address] 8 [facility] CBC LYMPHOCYTES [#/VOLUME] IN BLOOD BY AUTOMATED COUNT 1.41 10*3/u L 0.77 - 4.50 07/30 Specimen Type: BLOOD No comment entered. Ordering Provider: KYLAH SHIN Report Released Date/Time : Jul 30, 2024 08:14 AM Reporting Lab: [place] [facility] [address] [place] [address] 8 Performin g Lab: [place] [facility] [address] [place] [address] 8 [facility] CBC MONOCYTES [#/VOLUME] IN BLOOD BY AUTOMATED COUNT 0.48 10*3/u L 0.19 - 0.8 07/30 Specimen Type: BLOOD No comment entered. Ordering Provider: KYLAH SHIN Report Released Date/Time : Jul 30, 2024 08:14 AM Reporting Lab: [place] [facility] [address] [place] [address] 8 Performin g Lab: [place] [facility] [address] [place] [address] 8 [facility] CBC NEUTROPHILS [#/VOLUME] IN BLOOD BY AUTOMATED COUNT 2.18 10*3/u L 2.10 - 8.00 07/30 Specimen Type: BLOOD No comment entered. Ordering Provider: KYLAH SHIN Report Released Date/Time : Jul 30, 2024 08:14 AM Reporting Lab: [place] [facility] [address] [place] [address] 8 Performin g Lab: [place] [facility] [address] [place] [address] 8 [facility] CBC EOSINOPHILS [#/VOLUME] IN BLOOD BY AUTOMATED COUNT 0.26 10*3/u L 0.00 - 0.60 07/30 Specimen Type: BLOOD No comment entered. Ordering Provider: KYLAH SHIN Report Released Date/Time : Jul 30, 2024 08:14 AM Reporting Lab: [place] [facility] [address] [place] [address] 8 Performin g Lab: [place] [facility] [address] [place] [address] 8 [facility] CBC BASOPHILS [#/VOLUME] IN BLOOD BY AUTOMATED COUNT 0.08 10*3/u L 0.00 - 0.20 07/30 Specimen Type: BLOOD No comment entered. Ordering Provider: KYLAH SHIN Report Released Date/Time : Jul 30, 2024 08:14 AM Reporting Lab: [place] [facility] [address] [place] [address] 8 Performin g Lab: [place] [facility] [address] [place] [address] 8 [facility] CBC IMMATURE GRANULOCYTES/ 100 LEUKOCYTES IN BLOOD BY AUTOMATED COUNT 0.2 07/30 Specimen Type: BLOOD No comment entered. Ordering Provider: KYLAH SHIN Report Released Date/Time : Jul 30, 2024 08:14 AM Reporting Lab: [place] [facility] [address] [place] [address] 8 Performin g Lab: [place] [facility] [address] [place] [address] 8 [facility] CBC IMMATURE GRANULOCYTES [#/VOLUME] IN BLOOD BY AUTOMATED COUNT 0.01 10*3/u L 0.00 - 0.05 07/30 Specimen Type: BLOOD No comment entered. Ordering Provider: KYLAH SHIN Report Released Date/Time : Jul 30, 2024 08:14 AM Reporting Lab: [place] [facility] [address] [place] [address] Performin g Lab: [place] [facility] [address] [place] [address] [facility] HGA1C HEMOGLOBIN A1C/HEMOGLOBI N.TOTAL IN BLOOD 5.5 4.0 - 6.0 07/30 Specimen Type: BLOOD No comment entered. Ordering Provider: KYLAH SHIN Report Released Date/Time : Jul 30, 2024 08:14 AM Reporting Lab: [place] [facility] [address] [place] [address] Performin g Lab: [place] [facility] [address] [place] [address] [facility] CHOLESTEROL PANEL (PB) CHOLESTEROL [MASS/VOLUME] IN SERUM OR PLASMA 162 mg/dL 0 - 200 07/30 Specimen Type: PLASMA No comment entered. Ordering Provider: KYLAH SHIN Report Released Date/Time : Jul 30, 2024 08:14 AM Reporting Lab: [place] [facility] [address] [place] [address] Performin g Lab: [place] [facility] [address] [place] [address] [facility] CHOLESTEROL PANEL (PB) TRIGLYCERIDE [MASS/VOLUME] IN SERUM OR PLASMA 92 mg/dL 0 - 150 07/30 Specimen Type: PLASMA No comment entered. Ordering Provider: KYLAH SHIN Report Released Date/Time : Jul 30, 2024 08:14 AM Reporting Lab: [place] [facility] [address] [place] [address] Performin g Lab: [place] [facility] [address] [place] [address] [facility] CHOLESTEROL PANEL (PB) CHOLESTEROL IN LDL [MASS/VOLUME] IN SERUM OR PLASMA BY CALCULATION 96.6 mg/dL 07/30 Specimen Type: PLASMA No comment entered. Ordering Provider: KYLAH SHIN Report Released Date/Time : Jul 30, 2024 08:14 AM Reporting Lab: [place] [facility] [address] [place] [address] Performin g Lab: [place] [facility] [address] [place] [address] [facility] CHOLESTEROL PANEL (PB) CHOLESTEROL IN HDL [MASS/VOLUME] IN SERUM OR PLASMA 47.0 mg/dL 40 07/30 H Specimen Type: PLASMA No comment entered. Ordering Provider: KYLAH SHIN Report Released Date/Time : Jul 30, 2024 08:14 AM Reporting Lab: [place] [facility] [address] [place] [address] Performin g Lab: [place] [facility] [address] [place] [address] [facility] CHOLESTEROL PANEL (PB) CHOLESTEROL IN HDL/CHOLESTER OL.TOTAL [MASS RATIO] IN SERUM OR PLASMA 29.0 25 07/30 Specimen Type: PLASMA No comment entered. Ordering Provider: KYLAH SHIN Report Released Date/Time : Jul 30, 2024 08:14 AM Reporting Lab: [place] [facility] [address] [place] [address] Performin g Lab: [place] [facility] [address] [place] [address] [facility] Vital Signs Combined list of inpatient and outpatient Vital Signs from Department [facility] and [facility] Affairs, ranging from 12 months to all on record, depending upon the facility. Vital Sign Value Date Comments Source SYSTOLIC BLOOD PRESSURE 145 08/16/2024 14:21:00 [facility] DIASTOLIC BLOOD PRESSURE 92 08/16/2024 14:21:00 [facility] PULSE OXIMETRY 97 08/16/2024 14:21:00 [facility] WEIGHT 189.3 08/16/2024 14:21:00 [facility] BMI 26 kg/m2 08/16/2024 14:21:00 [facility] PAIN 2 08/16/2024 14:21:00 [facility] HEIGHT 72.0 08/16/2024 14:21:00 [facility] PULSE 74 08/16/2024 14:21:00 [facility] RESPIRATION 18 08/16/2024 14:21:00 [facility] Encounters Combined list of: 1) Encounters from Department of Veterans Affairs facilities going backup to the last 18 months, not all OR inpatient encounters are included; 2) Encounters from the [facility] facilities going backup to 280 months. Location Location Details Encounter Type Encounter Number Reason For Visit Attending Provider ADM Date DC Date Status Disposition Source [facility] Outpatient Encounter [id number] 04/02 [facility] Outpatient Encounter [id number] 07/26 [facility] F[facility] [id number] Diagnos is: ICD-10- CM I10 Teresita al (primar y) hyperte Mike Diego 08/16 [facility] [place] [facility] OFF[facility] O/P NEW LOW 30 MIN [id number] Diagnos is: ICD-10- CM I10 Teresita al (primar y) hyperte Mike Diego 08/16 [facility] Out[facility] Encounter [id number] 09/11 [facility] Outpatient Encounter [id number] 09/11 [facility] Outpatient Encounter [id number] 10/05 [facility] [place] [facility] Outpatient Encounter [id number] 10/16 [place] [facility] Out[facility] Encounter [id number] 10/19 [facility] FAC[facility] FEE [id number] Diagnos is: ICD-10- CM H90.A21 Snsrnrl hear loss, uni, r ear, with rstrcd hear cntra side ADITI JO A 10/22 [facility] HEARING AID XM&SLCTN BINAURL [id number] Diagnos is: ICD-10- CM H90.A21 Snsrnrl hear loss, uni, r ear, with rstrcd hear cntra side ADITI JO A 10/22 [place] [facility] Outpatient Encounter [id number] 10/25 [facility]AC[facility] FEE [id number] Diagnos is: ICD-10- CM Z46.1 Encount er for fitting and adjustm ent of hearing aid ADITI JO A 11/26 [facility] CONFORMITY EVALUATION [id number] Diagnos is: ICD-10- CM Z46.1 Encount er for fitting and adjustm ent of hearing aid ADITI JO 11/26 [place] [facility] En[facility] [id number] 12/20 [facility] En[facility] [id number] 01/23 [facility] FAC[facility] FEE [id number] Diagnos is: ICD-10- CM Z46.1 Encount er for fitting and adjustm ent of hearing aid ADITI JO 02/06 [facility] HEARING SERVICE [id number] Diagnos is: ICD-10- CM Z46.1 Encount er for fitting and adjustm ent of hearing aid ADITI JO 02/06 [facility] Social History Combined list of available smoking, tobacco, and other social history from Department of Defense and Veterans Affairs facilities. Social History Type Response Date Comment Sourc e Tobacco smoking status NHIS VA-TOBACCO USE FORMER CIGARETTES 08/16/2024 [facility] History of tobacco use OR-TOBACCO NEVER USED OTHER TYPE 08/16/2024 [facility] Plan of Care List of future care activities from Department of Veterans Affairs facilities. Additional future care activities may be listed in the Assessment and Plan section. Date/Time Care Activity Care Activity Detail Facili ty 08/16/2025 AMBULATORY - MEDICINE AM[facility]ATORY [facility]IC[facility]
--- OUTSIDE RECORDS SUMMARY | 2025-03-13 02:45 | XMS_ITS ---
Author Organization [facility] Address [address] [place] [address] Care Team Providers Care Campaign Worker Name Role Phone Jimy Conde MD Primary Care Provider Kirti Chilel Unavailable [phone] Encounters Encounter Location Date Provider Diagnosis [facility] [address] [place] [address] 03/13/2025 Kirti Goddard Plan Of Treatment Next Appt Details Provider Name:Kirti cueva, 04/17/2025 10:15:00 AM, [address] [place], [address], Progress Notes * RUBALCAVABolaDOB:1955 (70 yo M)Acc No.[id number]:03/13/2025 Patient: Bola Anderson Provider: Rupali Goddard MD :1955 A ge:70 Y S ex:Male Date:03/13/2025 Address:[address] [place], [place] [phone] Pcp:Jimy Conde MD 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
[2025-04-10] VITALS (7 sets, daily range): BP systolic 94–139; BP diastolic 64–98; PULSE 62–85; RESP 16–22; O2SAT 94–100
--- NOTE | 2025-04-10 09:07 | ECG_ITS ---
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 Measurements Intervals [place] Rate: 93 P: 54 CT: 178 QRS: 66 QRSD: 86 T: 69 QT: 334 QTc: 417 Interpretive Statements SINUS RHYTHM WITH OCCASIONAL SUPRAVENTRICULAR PREMATURE COMPLEXES No previous ECG available for comparison Electronically Signed On 04-11-2025 10:24:31 CDT by Eliud Arnett M.D. [email or web address] [id number]
--- NOTE | 2025-04-10 09:07 | XR_ITS ---
WS: [id number] Portable AP upright chest, 04/10/2025 Clinical Data: chest pain Comparison: None. Findings: No nodules, masses or effusions are seen. The heart is normal. The pulmonary vascularity is not increased. No pneumonia or pneumothorax is seen. The aortic arch and descending thoracic aorta show tortuosity. The diaphragms are flattened. There are monitor leads on the chest wall. XR/XR chest 1V portable [id number] Impression: Hyperinflation and atherosclerosis.
--- OUTSIDE RECORDS SUMMARY | 2025-04-10 09:12 | XMS_ITS | Encounter Summary ---
Author Organization [facility] Address [address] [place] [address] Care Team Providers Care Cupola Melter Name Role Phone Unavailable Primary Care Provider Unavailabl e Encounter Details Date Type Department Care Team (Latest Contact Info) Description 11/11/1998 Outpatient Historical [facility]3] Int Lupe Valdez Ivan-Prasanna [address] [facility] [address] [place] [address] Matias Leung K [address] [place] [address] Routine medical exam (Primary Dx) Social History Tobacco Use Types Packs/Day Years Used Date Smoking Tobacco: Never Assessed Sex and Gender Information Value Date Recorded Sex Assigned at Not on file 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
--- OUTSIDE RECORDS SUMMARY | 2025-04-10 09:12 | XMS_ITS | Encounter Summary ---
Author Organization [facility] Address [address] [place] [address] Care Team Providers Care Disbursing Officer Name Role Phone Unavailable Primary Care Provider Unavailabl e Encounter Details Date Type Department Care Team (Latest Contact Info) Description 11/11/1998 Outpatient Historical [facility] José Miguel Gerlaw [address] [place] [address] Matias Leung [address] [place] [address] Routine medical exam (Primary Dx) Social History Tobacco Use Types Packs/Day Years Used Date Smoking Tobacco: Never Assessed Sex and Gender Information Value Date Recorded Sex Assigned at Not on file 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
--- OUTSIDE RECORDS SUMMARY | 2025-04-10 09:12 | XMS_ITS | Encounter Summary ---
Author Organization [facility] Address [address] [place] [address] Care Team Providers Care River Tester Name Role Phone Unavailable Primary Care Provider Unavailabl e Encounter Details Date Type Department Care Team (Latest Contact Info) Description 02/28/2001 Outpatient Historical [facility] Gabo Rowland MD [address] [place] [phone] Routine medical exam (Primary Dx); Screening for other and unspecified cardiovascular conditions; Special screening for malignant neoplasm of the respiratory organs; Screening for other and unspecified endocrine, nutritional, metabolic, and immunity disorders Social History Tobacco Use Types Packs/Day Years Used Date Smoking Tobacco: Never Assessed Sex and Gender Information Value Date Recorded Sex Assigned at Not on file 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
--- OUTSIDE RECORDS SUMMARY | 2025-04-10 09:12 | XMS_ITS | Encounter Summary ---
Author Organization [facility] Address [address] [place] [address] Care Team Providers Care Physical Education Department Chair Name Role Phone Unavailable Primary Care Provider Unavailabl e Encounter Details Date Type Department Care Team (Latest Contact Info) Description 03/24/1999 Outpatient Historical [facility] Gabo Rowland MD [address] [place] [phone] Ganglion, unspecified (Primary Dx) Social History Tobacco Use Types Packs/Day Years Used Date Smoking Tobacco: Never Assessed Sex and Gender Information Value Date Recorded Sex Assigned at Not on file 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
--- OUTSIDE RECORDS SUMMARY | 2025-04-10 09:12 | XMS_ITS | Encounter Summary ---
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
--- OUTSIDE RECORDS SUMMARY | 2025-04-10 09:12 | XMS_ITS | Patient Health Record ---
Author Organization [facility] Address [address] [place] [address] Care Team Providers Care Down Filler Name Role Phone Jimy Conde MD Primary Care Provider Kirti Chilel Unavailable [phone] Migration, Provider Unavailable Unavailable Allergies Allergen (clinical drug ingredient) Drug/Non Drug Allergy documented on EMR Reaction Allergy Type Onset Date Status Mold Unknown Allergy Active Results Component Value Reference Range Notes NM Stress (Treadmill) Cardio lite-[id number] Reviewed date:03/13/2025 10:18:59 AM Interpretation: Performing Lab: Notes/Report: [id number]=iSite NM Stress (Treadmill) Cardio lite-[id number] Reviewed date:03/14/2025 12:35:30 PM Interpretation: Performing Lab: Notes/Report: See Below For Report NM Stress (Treadmill) Cardiolite Read See Below For Report Echo Complete [id number] Reviewed date:04/30/2024 08:55:03 AM Interpretation: Performing Lab: Notes/Report: [id number]=iSite CT Cardiac Scoring Diagnosti [id number] Reviewed date:06/21/2024 08:11:43 AM Interpretation: Performing Lab: Notes/Report: See Below For Report CT Cardiac Scoring Diagnostic Diagnosis Description: Palpitations Read See Below For Report zzzCT Cardiac Scoring Diagno stic RAD Reviewed date:06/20/2024 03:30:54 PM Interpretation: Performing Lab: Notes/Report: [id number] Schedule Confirmation Reviewed date:06/20/2024 03:30:54 PM Interpretation: Performing Lab: Notes/Report: CT Cardiac Scoring Diagnostic RAD zzzCT Cardiac Scoring Diagno stic RAD Reviewed date:06/21/2024 08:11:43 AM Interpretation: Performing Lab: Notes/Report: See Below For Report CT Cardiac Scoring Diagnostic RAD Read See Below For Report Holter x 48 Hour-[id number] Reviewed date:03/26/2025 04:53:06 PM Interpretation: Performing Lab: Notes/Report: NM Stress (Treadmill) Cardio lite-[id number] Reviewed date:03/06/2025 12:41:21 PM Interpretation: Performing Lab: Notes/Report: Schedule Confirmation Reviewed date:06/13/2024 01:33:51 PM Interpretation: Performing Lab: Notes/Report: CT Cardiac Scoring Diagnostic RAD Echo Complete [id number] Reviewed date:04/30/2024 10:38:15 AM Interpretation: Performing Lab: Notes/Report: Cardiopulmonary Services Name: JONATHAN RUBALCAVA Study Date: 04/26/2024 : 1955 Patient Location: [facility] Age: 69 yrs Gender: Male HR: 65 Reason For Study: palps Image Quality:Fair Interpretation Summary Left Ventricular Function is estimated to be 50-55%. There is mild mitral regurgitation. There is trace tricuspid regurgitation. There is no pericardial effusion. Recommendations Continue present medication. Will continue to follow regularly. EKG Normal sinus rhythm with frequent premature ventricular contractions. Left Ventricle The left ventricle is normal in size. There is normal left ventricular wall thickness. Left Ventricular Function is estimated to be 50-55%. The left ventricular wall motion is normal. Right Ventricle The right ventricle is normal in size and function. Atria The left atrium is mildly dilated. Right atrial size is normal. The interatrial septum is intact with no evidence for an atrial septal defect. Great Vessels The aortic root is normal size. The pulmonary is not well visualized. Pericardium/Pleural There is no pericardial effusion. There is no pleural effusion. Mitral Valve The mitral valve is normal. There is mild mitral regurgitation. Aortic Valve There is mild aortic valve sclerosis without evidence of stenosis. The aortic valve opens well. Tricuspid Valve The tricuspid valve is normal in structure and function. There is trace tricuspid regurgitation. Pulmonic Valve The pulmonic valve is not well visualized. MMode/2D Measurements & Calculations RVDd: 3.8 cm LVIDd: 5.5 cm FS: 27.2 % IVSd: 1.1 cm LVIDs: 4.0 cm EDV(Teich): 147.6 ml LVPWd: 0.84 cm ESV(Teich): 70.3 ml EF(Teich): 52.4 % Ao root diam: 3.5 cm asc Aorta Diam: 3.6 cm LVOT diam: 2.0 cm Ao root area: 9.8 cm2 LVOT area: 3.2 cm2 ACS: 2.1 cm Time Measurements MM HR: 107.0 BPM Doppler Measurements & Calculations MV E max stanley: 75.6 cm/sec Ao V2 max: 170.2 cm/sec MV A max stanley: 80.5 cm/sec MV dec slope: 546.7 cm/sec2 Ao max P.6 mmHg MV E/A: 0.94 MV dec time: 0.14 sec Ao V2 mean: 134.1 cm/sec Ao mean P.6 mmHg Ao V2 VTI: 38.3 cm LION(I,D): 1.7 cm2 LION(V,D): 1.9 cm2 LV V1 max P.9 mmHg SV(LVOT): 65.8 ml PA V2 max: 108.4 cm/sec LV V1 mean P.0 mmHg PA max P.7 mmHg LV V1 max: 98.8 cm/sec PA V2 mean: 79.7 cm/sec LV V1 mean: 67.0 cm/sec PA mean P.8 mmHg LV V1 VTI: 20.4 cm TR max stanley: 251.8 cm/sec RAP systole: 5.0 mmHg TR max P.4 mmHg RVSP(TR): 30.4 mmHg Ordering Physician: Kirti Goddard Referring Physician: Kirti Goddard Performed By: Curtis Gasca Echo Complete [id number] Reviewed date:04/19/2024 09:02:05 AM Interpretation: Performing Lab: Notes/Report: Schedule Confirmation Reviewed date:04/23/2024 08:42:49 AM Interpretation: Performing Lab: Notes/Report: CT Cardiac Scoring Diagnostic CT Cardiac Scoring [facility] [id number] Reviewed date:06/20/2024 03:30:54 PM Interpretation: Performing Lab: Notes/Report: [id number] Reason For Referral No Information Medications Medication SIG (Take, Route, Frequency, Duration) Notes Start Date End Date Status Azelastine HCl 0.1 % Solution 1 puff in each nostril Nasally Twice a day Active Nitroglycerin 0.4 MG Tablet Sublingual 1 tablet under the tongue and allow to dissolve as needed. Take every 5 minutes up to 3 times if chest pain persists Sublingual daily; Duration: 30 days As needed Active Aspirin 81 81 MG Tablet Delayed Release 1 tablet Orally Once a day Active Ibuprofen 200 MG Tablet 1 tablet with food or milk as needed Orally Three times a day prn Active Ezetimibe 10 MG Tablet 1 tablet Orally E very other day; Duration: 30 days 06/28/2024 Active Claritin 10 MG Tablet 1 tablet Orally Once a day prn Active Social History Tobacco Use: Social History Observation Description Date Details (start date - stop date) Former Smoker NA - NA Social History Drugs/Alcohol: Social Info Question Answer Notes Caffeine Intake: 3-4 cups per day Tobacco Use: Social Info Question Answer Notes Tobacco Control (Standard) Tobacco use: Former smoker How long has it been since you last smoked? 5-10 years Additional Details Category Social Info Options Details Drugs/Alcohol: Do you smoke marijuana? Le t medical marijuana card , still uses marijuana on occasion Do you drink alcohol? Yes, on oc casion Migrated Social History Migrated Social History Alcohol intake : , Smoking Status : Former smoker , History of tobacco use : Problems Problem Type SNOMED Code ICD Code Onset Dates Problem Status W/U Status Risk Notes Problem Anxiety (20463067) Anxiety (F41.9) Active confirmed Problem Dyspnea (127829499) SOB (shortne ss of breath) (R06.02) Active confirmed Problem Former smoker (6376073) Former smoker (Z87.891) Active confirmed Problem Bradycardia (35875970) Bradycardia (R00.1) Active confirmed Problem First degree atrioventricular block (268677598) First degree AV block (I44.0) Active confirmed Problem Statin not tolerated (238374447) Statin intolerance (Z78.9) Active confirmed Problem Palpitations (42368730) Palpitation (R00.2) Active confirmed Problem Coronary artery disease (26689301) CAD (coronary artery disease) (I25.10) Active confirmed Problem Supraventricular premature beats (08675613) PAC (premature atrial contraction) (I49.1) Active confirmed Vital Signs Heart Rate 65 /min 03/06/2025 Blood pressure diastolic 70 mm Hg 03/06/2025 Oximetry 96 % 03/06/2025 Height-cm 182.88 cm 03/06/2025 Weight-kg 86.41 kg 03/06/2025 Height 72.00 in 03/06/2025 Blood pressure systolic 106 mm Hg 03/06/2025 Weight 190.5 lbs 03/06/2025 BMI 25.83 kg/m2 03/06/2025 Encounters Encounter Location Date Provider Diagnosis [facility] [address] [place] [phone] 03/06/2025 Kirti Goddard CAD (coronary artery disease) I25.10 ; SOB (shortness of breath) R06.02 ; Statin intolerance Z78.9 ; Palpitation R00.2 ; PAC (premature atrial contraction) I49.1 ; Bradycardia R00.1 ; Anxiety F41.9 and Former smoker Z87.[address] [place] [address] 08/13/2024 Kirti Goddard Palpitation R00.2 ; CAD (coronary artery disease) I25.10 ; PAC (premature atrial contraction) I49.1 ; Bradycardia R00.1 ; Anxiety F41.9 and Former smoker Z87.[address] [place] [address] 05/29/2024 Johnndeddie Goddard Palpitation R00.2 ; Bradycardia R00.1 ; PAC (premature atrial contraction) I49.1 ; Anxiety F41.9 and Former smoker Z87.[address] [place] [address] 04/26/[address] [place] [address] 03/13/[address] [place] [address] [facility] Palpitation R00.2 ; PAC (premature atrial contraction) I49.1 ; SOB (shortness of breath) R06.02 and Former smoker Z87.[address] [place] [address] 03/26/[address] [place] [address] 03/19/2025 [facility] [address] [place] [address], [place] [address] 06/26/2024 [facility] [address] [place] [address] 05/09/2024 [facility] [address] [place] [address], [place] [phone] 04/30/2024 [facility] 0 07/08/2024 Provider Migration Migrated_Facility 0 0 07/07/2024 Provider Migration Assessments Encounter Date Diagnosis (ICD Code) Assessment Notes Treatment Notes Treatment Clinical Notes Section Notes 04/19/2024 Palpitation (ICD-10 - R00.2) Obtain 24-hour Holter monitor. EKG in office today indication is palpitation shortness of breath finding are sinus rhythm with PAC average heart rate of 64. 04/19/2024 PAC (premature atrial contraction) (ICD-10 - I49.1) EKG in office today indication is palpitation shortness of breath finding are sinus rhythm with PAC average heart rate of 64. 05/29/2024 Bradycardia (ICD-10 - R00.1) Denied any dizziness. Continue to monitor. 05/29/2024 Palpitation (ICD-10 - R00.2) Palpitation is most likely associated with PAC. He drinks 8 cups of coffee a day. We talked about cutting down caffeine intake. 08/13/2024 Palpitation (ICD-10 - R00.2) Denied any more episode of palpitation. We talked about result of Holter monitor. 08/13/2024 CAD (coronary artery disease) (ICD-10 - I25.10) CAD is based of the CT calcium score. Denied any angina. Continue aspirin, continue ezetimibe 10. In the absence of angina, continue to monitor. If the patient develop any chest pain tightness shortness of breath pressure then we will proceeded to stress test. 03/06/2025 SOB (shortness of breath) (ICD-10 - R06.02) For shortness of breath, the patient has documented history of CAD based on CT calcium score now presented with shortness of breath with physical activity concerning for angina. Talked about the benefit of nuclear stress test. 03/06/2025 CAD (coronary artery disease) (ICD-10 - I25.10) CAD is based of the CT calcium score Continue aspirin Continue Zetia Refill his nitro 03/06/2025 Statin intolerance (ICD-10 - Z78.9) 08/13/2024 PAC (premature atrial contraction) (ICD-10 - I49.1) PAC is most likely associated with excessive amount of caffeine intake. Talked about cutting down caffeine intake. 05/29/2024 PAC (premature atrial contraction) (ICD-10 - I49.1) PAC is most likely associated with excessive amount of caffeine intake. Talked about cutting down caffeine intake. 04/19/2024 SOB (shortness of breath) (ICD-10 - R06.02) Obtain echocardiogram. Obtain CT calcium score as a screening test. The patient denied any exertional symptoms. EKG in office today indication is palpitation shortness of breath finding are sinus rhythm with PAC average heart rate of 64. 04/19/2024 Former smoker (ICD-10 - Z87.891) Obtain CT calcium score and a follow-up after the completion of testing. EKG in office today indication is palpitation shortness of breath finding are sinus rhythm with PAC average heart rate of 64. 05/29/2024 Anxiety (ICD-10 - F41.9) Managed by primary care provider 08/13/2024 Bradycardia (ICD-10 - R00.1) Denied any dizziness. 03/06/2025 Palpitation (ICD-10 - R00.2) Monitor for 40 hours at the [facility] 03/06/2025 PAC (premature atrial contraction) (ICD-10 - I49.1) 05/29/2024 Former smoker (ICD-10 - Z87.891) Patient is to have CT calcium score next month. 08/13/2024 Anxiety (ICD-10 - F41.9) Managed by primary care provider 08/13/2024 Former smoker (ICD-10 - Z87.891) 03/06/2025 Bradycardia (ICD-10 - R00.1) Denied any dizziness. 03/06/2025 Anxiety (ICD-10 - F41.9) 03/06/2025 Former smoker (ICD-10 - Z87.891) 03/06/2025 Other Carolee Hay, am scribing for Kirti Goddard MD. Kirti Hay MD, personally performed the services prescribed in this documentation, as scribed by Carolee Loo and it is both accurate and complete. Plan Of Treatment Pending Test Test Name Order Date Holter x 24 Hour-14802 04/19/2024 Electrocardiogram (EKG) - 04434 04/19/20 Next Appt Details Provider Name:Margareteddie Alanisrachid cueva, 04/17/2025 10:15:00 AM, [address] [place] [address], [phone], Insurance Providers Payer Name Payer Address Payer Phone Subscriber Number Group Number Insured Name Patient Relationship to Insured Coverage Start Date Coverage End Date [employer] [place] Replacement [address] [place] [address] [id number] Jonathan Rubalcava Self - patient is the insured Medical (General) History Medical History History ICD Code HBP covid vacc Surgical History Surgery Date(Month/Year) L&R shoulder L&R Feet Right knee Appendectomy arthroplasty right knee Bilateral Shoulder Repair feet surgery right hand surgery
--- NOTE | 2025-04-10 09:13 | ED_ITS ---
HPI - Chest Pain 2 General: Chief Complaint: Chest Pain Stated Complaint: chest pain Time Seen by Provider: 04/10/25 09:06 History of Present Illness: 70-year-old male who presents to the ED with complaint of chest pressure lasting several minutes prior to arrival. Patient states that he was cutting logs this morning when he experienced pressure in his chest, which he took a dose of nitro. He states that the nitro did relieve his symptoms. He does not currently have any chest pain or pressure here. He states that he has not had this happen before in the past. He also reports of headache and palpitations and denies any shortness of breath, cough, leg pain or swelling. He states he had taken 1 dose of his aspirin 81 mg this morning. He reports history of irregular heartbeat but he is unsure what type. He also reports that he had a stress test and echo performed at an outside facility but he is unable to tell me what the results were. 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 He also takes a cholesterol medication at home. No other complaints at this time. Associated symptoms: Reports palpitations; Deny abdominal pain, dyspnea or fever(s) Related Data Home Medications ?Medication ?Instructions ?Recorded ?Confirmed azelastine 137 mcg (0.1 %) nasal 2 spray intranasal BI D 04/10/25 04/10/25 spray ezetimibe 10 mg tablet 10 mg PO DAILY 04/10/25 07 loratadine 10 mg tablet (Claritin) 10 mg PO DAILY PRN Allergy Symptoms 04/10/25 04/10/25 nitroglycerin 0.4 mg sublingual See Rx Instructions .R oute .COMPLEX 04/10/25 04/10/25 tablet Allergies Allergy/AdvReac Type Severity Reaction Status Date / Time No Known Allergies Allergy Verified 03/16/24 09:06 Review of Systems 2 Const: Denies: fever(s) or chills Card: Reports: chest pain and palpitations Resp: Denies: dyspnea or non-productive cough GI: Denies: abdominal pain : Denies: dysuria, urinary frequency or urinary urgency Musc: Denies: neck pain or back pain Skin/Breast: Denies: rash PFSH ED 2 PFSH: Social History Smoking and tobacco/nicotine status: former use of tobacco/nicotine Physical Exam 2 Const: COMMON NORMALS: no acute distress GENERAL APPEARANCE: cooperative and comfortable ORIENTATION/CONSCIOUSNESS: Yes awake, Yes oriented to person, Yes oriented to place and Yes oriented to time HENMT: COMMON NORMALS: normocephalic, atraumatic and hearing grossly normal bilaterally HEAD & SCALP: normocephalic and atraumatic Resp: COMMON NORMALS: normal respiratory effort, No retractions, No use of accessory muscles and clear to auscultation bilaterally AUSCULTATION: clear to auscultation bilaterally Cardio: COMMON NORMALS: regular rate, regular rhythm and No murmurs present (Cardio) RATE: regular rate RHYTHM: regular rhythm GI: COMMON NORMALS: Soft to palpation and No hepatosplenomegaly present A USCULTATION: Yes normoactive bowel sounds PALPATION: Yes Soft to palpation, No Tenderness to palpation present (GI), No Guarding due to palpation present (GI) and Yes No hepatosplenomegaly present Extremity: COMMON NORMALS: normal to inspection, capillary refill normal, no clubbing, cyanosis or edema, no calf tenderness and no pedal edema Neuro: SENSORIUM/ORIENTATION: Yes oriented to person, Yes oriented to place and Yes oriented to time Skin: COMMON NORMALS: no rashes or lesions noted GENERAL SKIN EXAM: no rashes or lesions noted Course 2 Vital Signs: Vital signs: Vital Signs Pulse Rate 66 04/10/25 11:43 Respiratory Rate 20 H 04/10/25 11:43 Blood Pressure 99/64 04/10/25 11:43 Pulse Oximetry 94 04/10/25 11:43 Oxygen Delivery Me thod Room Air 04/10/25 11:43 MDM - Chest Pain Medical Decision Making Patient is having escalating angina or initially was having shortness of breath exertion and was having full-blown chest pain relieved by nitro provoked by exertion. His cardiac enzymes and EKG did not show anything acute. Will try to get old records to review of the workup this been done at [facility] waited several hours were unable to get them discussed with the patient he is comfortable with this going had admitting here and having our cardiology crew see him. Understanding that he is likely to require further evaluation including an angiogram. He is not having any further chest pain of concern when he arrived after he received nitro was that he Medical Records I reviewed the patient's medical records. Reviewed available records attempted to get records from [facility] not currently available still awaiting transfer records Lab Data I reviewed the patient's lab results. 04/10/25 09:10 04/10/25 09:10 Radiology Impressions Chest X-Ray 04/10/25 09:07 Impression: Hyperinflation and atherosclerosis. Laboratory Results WBC 7.74 10^3/uL (3.29-11.43) 04/10/25 09:10 RBC 5.31 10^6/uL (3.85-5.65) 04/10/25 09:10 Hgb 15.50 g/dL (11.27-16.99) 04/10/25 09:10 Hct 44.9 % (37-53) 04/10/25 09:10 MCV 84.6 fl (82-101) 04/10/25 09:10 MCH 29.2 pg (27-33) 04/10/25 09:10 MCHC 34.5 g/dL (30-55) 04/10/25 09:10 RDW 12.8 % (12.1-15.1) 04/10/25 09:10 Plt Count 238 10^3/cmm (157-399) 04/10/25 09:10 MPV 8.3 fL (7.4-10.4) 04/10/25 09:10 Neut % (Auto) 58.6 % 04/10/25 09:10 Lymph % (Auto) 28.3 % 04/10/25 09:10 [place] % (Auto) 9.4 % 04/10/25 09:10 Eos % (Auto) 2.2 % 04/10/25 09:10 Baso % (Auto) 1.2 % 04/10/25 09:10 Neut # (Auto) 4.54 10^3/uL (1.8-7.7) 04/10/25 09:10 Lymph # (Auto) 2.2 10^3/uL (0.8-4.8) 04/10/25 09:10 [place] # (Auto) 0.7 10^3/uL (0.2-0.9) 04/10/25 09:10 Eos # (Auto) 0.2 10^3/uL (0.0-0.8) 04/10/25 09:10 Baso # (Auto) 0.1 10^3/uL (0.0-0.1) 04/10/25 09:10 Nucleated RBC % (auto) 0 % 04/10/25 09:10 Nucleated RBCs # 0.0 /100WBC 04/10/25 09:10 Sodium 142 mmol/L (136-145) 04/10/25 09:10 Potassium 4.0 mmol/L (3.5-5.1) 04/10/25 09:10 Chloride 105 mmol/L (98-107) 04/10/25 09:10 Carbon Dioxide 20 mmol/L (22-29) L 04/10/25 09:10 Anion Gap 21.0 (5-19) H 04/10/25 09:10 BUN 28 mg/dL (8-23) H 04/10/25 09:10 Creatinine 1.5 mg/dL (0.7-1.2) H 04/10/25 09:10 GFR Calculation 46.5 mL/min (90-130) L 04/10/25 09:10 Glucose 99 mg/dL (65-115) 04/10/25 09:10 Calculated Osmolality 300 mOsm/kg (285-295) H 04/10/25 09:10 Calcium 9.9 mg/dL (8.5-10.5) 04/10/25 09:10 Total Bilirubin 1.2 mg/dL (0.15-1.2) 04/10/25 09:10 AST 22 U/L (0-40) 04/10/25 09:10 ALT 19 U/L (0-41) 04/10/25 09:10 Alkaline Phosphatase 68 U/L (40-130) 04/10/25 09:10 Troponin T Baseline 11 ng/L (0-15) 04/10/25 09:10 Troponin T 120 Minute 8.09 ng/L (0-15) 04/10/25 10:58 Delta Troponin T -2.91 ABS# (0-10) L 04/10/25 10:58 Troponin T Hi Sens 6Hr 8.19 ng/L (0-15) 04/10/25 14:54 Troponin T Hi Sens 6Hr Delta -2.81 ng/L (0-12) L 04/10/25 14:54 Total Protein 6.8 g/dL (6.6-8.7) 04/10/25 09:10 Albumin 4.6 g/dL (3.5-5.2) 04/10/25 09:10 Globulin 2.2 g/dL (1.3-4.6) 04/10/25 09:10 All radiology interpretation(s) finalized by discharge EKG Data EKG 1: Interpretation: EKG 04/10/2025 905 sinus rhythm occasional PVCs no acute ST elevation or T wave inversion. Rate 93 OR interval 178 QTc 417 no EKGs to compare EKG 2: Interpretation: EKG 730 2025-07-19 normal sinus rhythm no acute ST changes no T wave inversion rate of 64 OR interval 198 QTc 405 unchanged from previous EKG same day EKG 3: Interpretation: EKG 04/10/2025 1521 normal sinus rhythm rate of 57 QTc 408 OR [address] elevation or depression normal Q-wave unchanged from previous Discharge Plan Discharge Patient Disposition: Admitted As Inpatient Clinical Impression: Stable angina Condition: Stable Coding Level of Care Code ED Associate Curator for Shante Copeland
--- OUTSIDE RECORDS SUMMARY | 2025-04-10 09:14 | XMS_ITS | Encounter Summary ---
Author Organization [facility] Address [address] [place] [address] Care Team Providers Care Wrapping Machine Tender Name Role Phone Unavailable Primary Care Provider Unavailabl e Encounter Details Date Type Department Care Team (Latest Contact Info) Description 11/20/1999 Outpatient Historical [facility] Gabo Rowland MD [address] [place] [address] Other general medical examination for administrative purposes (Primary Dx); Need for prophylactic vaccination against Streptococcus pneumoniae (pneumococcus); Need vaccination-viral disease Social History Tobacco Use Types Packs/Day Years Used Date Smoking Tobacco: Never Assessed Sex and Gender Information Value Date Recorded Sex Assigned at Not on file 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
--- OUTSIDE RECORDS SUMMARY | 2025-04-10 09:14 | XMS_ITS | Clinical Summary ---
Author Organization [facility] [address] [place] [address] Care Team Providers Care Director Of Business Operations Name Role Phone Unavailable Primary Care Provider Unavailabl e Allergies No known active allergies Medications azithromycin (ZITHROMAX) 250 mg tabletIndication s:Cough,Pneumoni a Take 2 tabs the first day and 1 tab days 2-5 1 Package 0 09/04/2013 Active Active Problems No known active problems Immunizations Immunization Administration Dates Next Due (PNEUMOVAX 23)(50 YRS UP) PN EUMOCOCCAL POLYSACCHARIDE (PPV23) 0.5 ML, IM 11/20/1999 (YF-VAX)(9 MOS UP) YELLOW FEVER VACCINE, 0.5 ML, SUBCUT 12/01/1999 Influenza Seasonal Unspecified Formulation IM Social History Tobacco Use Types Packs/Day Years Used Date Smoking Tobacco: Never Smokeless Tobacco: Never Alcohol Use Standard Drinks/Week Comments No 0 (1 standard drink = 0.6 oz pur e alcohol) Sex and Gender Information Value Date Recorded Sex Assigned at Not on file 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 Gender Identity Not on file Sexual Orientation Not on file Last Filed Vital Signs Vital Sign Reading Time Taken Comments Blood Pressure 130/80 09/04/2013 12:41 PM FLIGHT OPERATIONS MANAGER Pulse 78 09/04/2013 12:41 PM FLIGHT OPERATIONS MANAGER Temperature 36.3 C (97.4 F) 09/04/2013 12:41 PM FLIGHT OPERATIONS MANAGER Respiratory Rate 18 09/04/2013 12:41 PM FLIGHT OPERATIONS MANAGER Oxygen Saturation 98% 09/04/2013 12:41 PM FLIGHT OPERATIONS MANAGER Inhaled Oxygen Concentration - - Weight 95.3 kg (210 lb) 09/04/2013 12:41 PM FLIGHT OPERATIONS MANAGER Height - - Body Mass Index - - Plan of Treatment Health Maintenance Due Date Last Done Comments DTAP/TDAP/TD VACCINES (1 - Tdap) 01/15/1976 COLORECTAL SCREENING 2002 Colorectal Cancer Screening 2002 FIT-DNA Q 3 years 2002 FIT/FOBT Q 1 year 2002 Flex Sig/CT Colonography Q 5 years 2002 PNEUMOCOCCAL VACCINE 50+ YEARS (2 of 2 - PCV) 01/15/20 07 11/20/1999 ZOSTER VACCINE (1 of 2) 2007 INFLUENZA VACCINE (#1) 2025 11/20/1999 RSV VACCINE (60+ or ) (1 - 1-dose 75+ series) 01/15/2032 Insurance [employer] CHOICE POS
[2025-04-10 09:20] LABS: Hematocrit 44.9 % (37-53); Hemoglobin 15.50 g/dL (11.27-16.99); Mean Corpuscular HGB Conc 34.5 g/dL (30-55); Mean Corpuscular Hemoglobin 29.2 pg (27-33); Mean Corpuscular Volume 84.6 fl (82-101); Nucleated Red Blood Cells % 0 %; Platelet Count 238 10^3/cmm (157-399); Red Blood Count 5.31 10^6/uL (3.85-5.65); White Blood Count 7.74 10^3/uL (3.29-11.43)
[2025-04-10 09:35] LABS: Alanine Aminotransferase 19 U/L (0-41); Albumin Level 4.6 g/dL (3.5-5.2); Alkaline Phosphatase 68 U/L (40-130); Anion Gap 21.0 (5-19); Aspartate Amino Transferase 22 U/L (0-40); Blood Urea Nitrogen 28 mg/dL (8-23); Calcium 9.9 mg/dL (8.5-10.5); Carbon Dioxide 20 mmol/L (22-29); Chloride 105 mmol/L (98-107); Creatinine Clr Calc Pharmacy 52.5704; Globulin 2.2 g/dL (1.3-4.6); Glucose 99 mg/dL (65-115); Osmolality Calculated 300 mOsm/kg (285-295); Potassium 4.0 mmol/L (3.5-5.1); Sodium 142 mmol/L (136-145); Total Protein 6.8 g/dL (6.6-8.7)
[2025-04-10 09:36] LABS: Troponin(5th) Baseline 11 ng/L (0-15)
--- NOTE | 2025-04-10 10:13 | PC.PHAR ---
pATIENT STATES HE TAKES EZETIMIBE EVERY OTHER DAY . PATIENT STATES HE FILLS AT [facility] STATES EZETIMIBE 10MG WAS LAST FILLED 10/12/24 .
--- NOTE | 2025-04-10 11:07 | ECG_ITS ---
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 Measurements Intervals [place] Rate: 64 P: 53 DC: 198 QRS: 62 QRSD: 86 T: 65 QT: 392 QTc: 405 Interpretive Statements SINUS RHYTHM Compared to ECG 04/10/2025 09:05:55 No significant changes Electronically Signed On 04-11-2025 10:29:34 CDT by Eliud Arnett M.D. [email or web address]
[2025-04-10 11:21] LABS: Troponin 5 2HR 8.09 ng/L (0-15)
[2025-04-10 11:22] LABS: Troponin 5 2HR Delta -2.91 ABS# (0-10)
--- NOTE | 2025-04-10 15:07 | ECG_ITS ---
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 Measurements Intervals [place] Rate: 57 P: -1 CT: 164 QRS: 66 QRSD: 92 T: 64 QT: 417 QTc: 408 Interpretive Statements SINUS BRADYCARDIA Compared to ECG 04/10/2025 11:07:22 Sinus rhythm no longer present Electronically Signed On 04-11-2025 10:29:17 CDT by Eliud Arnett M.D. [email or web address]
[2025-04-10 15:17] LABS: Troponin 5 6HR 8.19 ng/L (0-15)
[2025-04-10 15:19] LABS: Troponin 5 6HR Delta -2.81 ng/L (0-12)
--- NOTE | 2025-04-10 15:22 | USCV_ITS ---
Bola Rubalcava Age: 70 Gender: M : 1955 Exam Date: 04/10/2025 15:35 Ordering Phys: Sofy Steven MD Technologist: JABIER [place] [facility] [place]ication: Cp BP: 125 / 82 HR: 65 Rhythm: Sinus Technical Quality: Adequate MEASUREMENTS (Male / Female) Normal Values 2D ECHO LV Diastolic Diameter PLAX 5.2 cm 4.2 - 5.9 / 3.9 - 5.3 cm IVS Diastolic Thickness 1.1 cm 0.6 - 1.0 / 0.6 - 0.9 cm IVS Systolic Thickness 1.9 cm LVPW Diastolic Thickness 0.9 cm 0.6 - 1.0 / 0.6 - 0.9 cm LVPW Systolic Thickness 1.5 cm LVOT Diameter 2.1 cm LV Ejection Fraction 2D Teich 54.4 % LV Ejection Fraction MOD 4C 57.1 % LV Ejection Fraction MOD 2C 56.3 % LV Ejection Fraction 2C AL 57.1 % LA Diameter 3.7 cm RA Systolic Volume 4C AL 35.2 ml RA Systolic Volume 4C MOD 35.1 ml LA Sys Volume AL 44.2 cm cubed LA Sys Volume Index AL 21.8 cm cubed/m squared Aorta at Sinotubular Diameter 2.5 cm IVC Diameter 1.8 cm M-MODE LA Ao Ratio MM 1.2 AV Cusp Separation MM 1.7 cm DOPPLER AV Peak Velocity 184.7 cm/s LVOT Peak Velocity 98.0 cm/s AV Area Cont Eq vti 1.9 cm squared AV Area Cont Eq pk 1.8 cm squared MV Peak Velocity 90.0 cm/s MV Area PHT 4.0 cm squared Mitral E to A Ratio 0.9 TV Peak Velocity 112.5 cm/s TR Peak Velocity 124.0 cm/s TR Peak Gradient 6.2 mmHg TV Peak E Velocity 63.0 cm/s PV Peak Velocity 121.0 cm/s FINDINGS Left Ventricle Normal left ventricular size and systolic function, EF 56%. Normal left ventricular wall thickness. Normal left ventricular diastolic function Right Ventricle Normal right ventricular size and systolic function Right Atrium Normal right atrial size Left Atrium Normal left atrial size Mitral Valve Normal mitral valve function Aortic Valve Normal aortic valve function Tricuspid Valve Normal tricuspid valve function Pulmonic Valve Normal pulmonic valve function Pericardium No pericardial effusion Aorta Normal aortic root or ascending aorta size IVC Normal IVC size CONCLUSIONS 1. Normal biventricular function, EF of left ventricle 56% 2. No significant valvular abnormalities Talha Valle MD, FACC (Electronically Signed) Final Date: 10 April 2025 22:00 S
--- NOTE | 2025-04-10 15:28 | P.HP_ITS ---
Providers/Chief Complaint 2 Primary Care Provider: Jessica Rubalcava, TRANSIT PLANNING DIRECTOR Chief Complaint: chest pain History of Present Illness Plaza Rubalcava is a 70 year old male Medications/Allergies Home Medications ?Medication ?Instructions ?Recorded ?Confirmed ?Last Taken ?Type azelastine 137 mcg (0.1 %) nasal 2 spray intranasal BI D 04/10/25 04/10/25 Unknown History spray ezetimibe 10 mg tablet 10 mg PO DAILY 04/10/25 07/04/10/25 History loratadine 10 mg tablet (Claritin) 10 mg PO DAILY PRN Allergy Symptoms 04/10/25 04/10/25 Unknown History nitroglycerin 0.4 mg sublingual See Rx Instructions .R oute .COMPLEX 04/10/25 04/10/25 04/10/25 History tablet Allergies Allergy/AdvReac Type Severity Reaction Status Date / Time No Known Allergies Allergy Verified 03/16/24 09:06 PFSH Acute 2 PFSH: Social History Smoking and tobacco/nicotine status: former use of tobacco/nicotine Vitals/I&O/Wt Last Vital Signs Pulse 66 04/10/25 11:43 Resp 20 H 04/10/25 11:43 BP 99/64 04/10/25 11:43 Pulse Ox 94 04/10/25 11:43 O2 Del Method Room Air 04/10/25 11:43 Weight last 48 hrs Weight 80.739 kg Data 04/10/25 09:10 04/10/25 09:10 A&P PDMP PDMP Reviewed: Not Reviewed Coding Level of Care Code Acute Code for Chg Min
[2025-04-10 15:54] LABS: Cholesterol 169 mg/dL (0-200); HDL Cholesterol 51 mg/dL (60-100); NT Pro B Type Natriuretic Pept 62 pg/mL (0-125); Thyroid Stimulating Hormone 1.38 uIU/mL (0.27-4.20); Triglycerides 124 mg/dL (0-150)
--- NOTE | 2025-04-10 16:00 | P.CONIM_ITS ---
Providers/Reason For Consult 2 Consulting Physician/Specialty*: Dr Valle, cardiology Reason for Consult*: Exertional chest pain Requesting Physician: Dr. Rooney Primary Care Provider: DESIRAE Gonzalez History of Present Illness History of Present Illness Bola Rubalcava is a 70 year old male with past medical history of irregular heartbeat (unknown nature) who gets his cardiovascular care with Dr. Goddard at [facility]. He presented to the emergency room this morning with chest pain that began with exertion cutting logs. This is the first time he has ever had chest pain, he took 2 nitroglycerin and the pain was relieved. He was not certain that he could safely drive to [place] to his primary trial judge for evaluation so he came here instead. He reports recently having a stress test 3 weeks ago at [place] as well as other workup but he does not know the results in detail. Now that he is stable he does not want to stay here at [facility] for further evaluation but would rather go straight to [place] to his primary trial judge. He has not had any chest pain since arriving in the ER this morning. I discussed this with Dr. Valle who was on-call for cardiology today, as well as Dr. Rooney who cared for him in the ER. We are all in agreement, he can discharge from our ER and present directly to [facility]. He appears stable to do so, troponin series today 11-> 8->8. No ST or T wave changes which would indicate acute ischemia. Medications/Allergies Home Medications ?Medication ?Instructions ?Recorded ?Confirmed ?Last Taken ?Type azelastine 137 mcg (0.1 %) nasal 2 spray intranasal BI D 04/10/25 04/10/25 Unknown History spray ezetimibe 10 mg tablet 10 mg PO DAILY 04/10/25 07/3 04/10/25 History loratadine 10 mg tablet (Claritin) 10 mg PO DAILY PRN Allergy Symptoms 04/10/25 04/10/25 Unknown History nitroglycerin 0.4 mg sublingual See Rx Instructions .R oute .COMPLEX 04/10/25 04/10/25 04/10/25 History tablet Allergies Allergy/AdvReac Type Severity Reaction Status Date / Time No Known Allergies Allergy Verified 03/16/24 09:06 PFSH Acute 2 PFSH: Social History Smoking and tobacco/nicotine status: former use of tobacco/nicotine Vitals/I&O/Wt Last Vital Signs Pulse 69 04/10/25 16:50 Resp 16 04/10/25 16:06 BP 139/98 04/10/25 16:50 Pulse Ox 99 04/10/25 16:50 O2 Del Method Room Air 04/10/25 16:06 Weight last 48 hrs Weight 178 lb Physical Exam 2 Const: COMMON NORMALS: no acute distress and patient oriented x3 GENERAL APPEARANCE: cooperative and comfortable ORIENTATION/CONSCIOUSNESS: Yes awake, Yes oriented to person, Yes oriented to place and Yes oriented to time Chest: COMMONS NORMALS: normal inspection of the chest and normal palpation of entire chest wall CHEST: Yes Symmetrical chest wall rise Resp: COMMON NORMALS: normal respiratory effort, No retractions, No use of accessory muscles and clear to auscultation bilaterally EFFORT & INSPECTION: Yes symmetric chest movement AUSCULTATION: clear to auscultation bilaterally Cardio: COMMON NORMALS: regular rate, regular rhythm, S1 normal heart sound present, S2 normal heart sound present, No gallops present (Cardio), No clicks present (Cardio), No murmurs present (Cardio) and No rub (Cardio) RATE: r egular rate RHYTHM: regular rhythm HEART SOUNDS: S1 normal heart sound present and S2 normal heart sound present PERIPHERAL PULSES: radial pulses present Extremity: COMMON NORMALS: no pedal edema Neuro: COMMON NORMALS: patient oriented x3 and moves all extremities S ENSORIUM/ORIENTATION: Yes oriented to person, Yes oriented to place and Yes oriented to time Data 04/10/25 09:10 04/10/25 09:10 A&P Assessment and plan 1. Stable angina: Plan: Since he does not want to stay for further evaluation, he is stable to discharge and go straight to the emergency room at [facility] to continue his workup. PDMP PDMP Reviewed: Not Reviewed Coding Level of Care Code Acute Code for Chg Fwd Diagnoses Stable angina I20.89
[2025-04-10 16:19] LABS: Estmated Average Glucose 108; Hemoglobin A1C 5.4 % (4.0-6.0)
[2025-04-10] MEDS: heparin 5,000 unit/mL INJ 1 mL 5000 UNIT SUBCUT (16:26)
== END 2025-04-10 16:55 | disposition home or self-care (01) ==
PROVIDERS: Internal Medicine; Emergency Provider Family Medicine; PCP Nurse Practitioner Family
DX: I20.89 Other forms of angina pectoris (principal); Z87.891 Personal history of nicotine dependence
CPT/HCPCS: 36415; 71045; 80053; 80061; 83036; 83880; 84443; 84484; 85025; 93005; 93306; 96372; 99285; J1644; J9999

== ENCOUNTER 2025-04-29 14:08 | Outpatient (CLI) | payer MEDICARE, SELFPAY ==
--- NOTE | 2025-04-29 14:16 | MR_ITS ---
WS: [id number] MRI HEAD WITH CONTRAST WITH ATTENTION TO THE INTERNAL AUDITORY CANALS TECHNIQUE: Sagittal T1, T2 axial, T2 axial flair, axial susceptibility weighted imaging, axial diffusion weighted images, and coronal T2 images were obtained. Pre and post T1 axial and post T1 coronal images. ADC and FSPGR images. Post gadolinium images with attention to the internal auditory canals. Axial fiesta imaging. CLINICAL INFORMATION: BENIGN NEOPLASM OF CRANIAL NERVES/HEARING LOSS,BILATERAL COMPARISON: MRI 09/11/2024 FINDINGS: Previously described enhancing lesion in the LEFT IAC is stable in appearance. This measures approximately 3.4 x 4.2 mm today. No other significant changes. No evidence of restricted diffusion to suggest acute ischemia. Ventricular system and basal cisterns are patent. Minimal small vessel changes. Mild parenchymal volume loss. No hemosiderin on the susceptibility weighted images. RIGHT IAC is normal. Normal trigeminal nerve root entry zones. Mild mucosal thickening in the paranasal sinuses. Mastoid air cells are well aerated. Normal vascular flow voids at the skull base. No hemosiderin. MR/MR iac's wo/w con* [id number] IMPRESSION: 1. 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 This measures 4.2 mm in maximum dimension. 2. No other interval changes.
[2025-04-29] MEDS: gadobenate dimeglumine 20 mL vial 17 ML IV (15:41)
== END 2025-04-29 14:09 | disposition home or self-care (01) ==
LOC: RAD 14:09
PROVIDERS: PCP Nurse Practitioner Family; Visit Provider Otolaryngology
DX: D33.3 Benign neoplasm of cranial nerves (principal); H91.8X3 Other specified hearing loss, bilateral; J34.89 Other specified disorders of nose and nasal sinuses
CPT/HCPCS: 70553